=== PATIENT | male | born 1945 | race Caucasian/White ===

== ENCOUNTER 2016-09-17 08:17 | Outpatient (CLI) | payer OTHER ==
[2016-09-17 09:02] LABS: ALBUMIN/GLOBULIN RATIO 1.2 (1.0-2.2); BILIRUBIN,TOTAL 0.8 mg/dL (0.2-1.0); BUN - BLOOD UREA NITROGEN 11 mg/dL (6-20); CALCIUM 9.4 mg/dL (8.5-10.3); CARBON DIOXIDE - CO2 29 mmol/L (21-32); CHLORIDE 98 mmol/L (101-111); CHOL/HDL RATIO 2.1 (<5.0); CHOLESTEROL 132 mg/dL; CREATININE 0.9 mg/dL (0.6-1.2); GFR - MDRD 83 (>89); GLUCOSE 100 mg/dL (70-100); HDL CHOLESTEROL 64 mg/dL; LDL/HDL RATIO 0.9 (<3.6); POTASSIUM 4.1 mmol/L (3.5-5.0); SODIUM 136 mmol/L (135-145); TOTAL PROTEIN 8.2 g/dL (6.7-8.2); TRIGLYCERIDES 56 mg/dL; VLDL CHOLESTEROL 11 mg/dL
[2016-09-17 09:07] LABS: HEMOGLOBIN A1C 0.6 g/dL
== END 2016-09-17 08:18 | disposition home or self-care (01) ==
LOC: LAB 08:17
PROVIDERS: ATTEND Family Medicine
DX: I10 Essential (primary) hypertension (principal)
CPT/HCPCS: 36415; 80053; 80061; 82043; 83036; 84153

== ENCOUNTER 2017-07-05 07:58 | Outpatient (CLI) | payer OTHER ==
[2017-07-05 08:35] LABS: ALBUMIN 4.2 g/dL (3.2-5.5); ALBUMIN/GLOBULIN RATIO 1.2 (1.0-2.2); ALKALINE PHOSPHATASE 64 IU/L (42-121); ALT ALANINE AMINOTRANSFERASE 25 IU/L (10-60); AST ASPARTATE AMINOTRANSFERASE 25 IU/L (10-42); BILIRUBIN,TOTAL 0.6 mg/dL (0.2-1.0); BUN - BLOOD UREA NITROGEN 10 mg/dL (6-20); CALCIUM 9.8 mg/dL (8.5-10.3); CARBON DIOXIDE - CO2 29 mmol/L (21-32); CHLORIDE 97 mmol/L (101-111); CHOL/HDL RATIO 2.4 (<5.0); CHOLESTEROL 134 mg/dL; CREATININE 0.9 mg/dL (0.6-1.2); GFR - MDRD 83 (>89); GLUCOSE 110 mg/dL (70-100); HDL CHOLESTEROL 57 mg/dL; LDL CHOLESTEROL,CALCULATED 62 mg/dL; LDL/HDL RATIO 1.1 (<3.6); SODIUM 134 mmol/L (135-145); TOTAL PROTEIN 7.6 g/dL (6.7-8.2); VLDL CHOLESTEROL 15 mg/dL
== END 2017-07-05 07:59 | disposition home or self-care (01) ==
LOC: LAB 07:58
PROVIDERS: ATTEND Internal Medicine Cardiovascular Disease
DX: E78.5 Hyperlipidemia, unspecified (principal); I10 Essential (primary) hypertension
CPT/HCPCS: 36415; 80053; 80061; 83721

== ENCOUNTER 2018-02-26 10:42 | Outpatient (CLI) | payer OTHER | END 2018-02-26 10:43 | disposition critical access hospital (66) | LOC: EMS 10:42 | PROVIDERS: ATTEND Surgery | DX: M25.551 Pain in right hip (principal); W00.1XXA Fall from stairs and steps due to ice and snow, initial encounter; Y93.01 Activity, walking, marching and hiking; Y92.008 Other place in unspecified non-institutional (private) residence as the place of occurrence of the external cause | CPT/HCPCS: A0425; A0429 ==

== ENCOUNTER 2018-02-26 10:53 | Emergency (ER) | payer OTHER ==
[2018-02-26] MEDS ORDERED: HYDROcod/ACETAM 5/325 MG TABLET PO STA (11:06)
--- NOTE | 2018-02-26 11:09 | ED Physician Documentation ---
PD HPI LOWER EXT INJURY - Stated complaint Stated Complaint: R HIP PX AFTER FALL - Chief complaint Chief Complaint: Ext Problem - History obtained from History obtained from: Patient, Family (), EMS - History of Present Illness PD HPI LOW EXT INJURY LOCATION: Other (72-year-old gentleman with history of left total hip replacement and coronary bypass presents after a fall this morning. He was at home going down the steps outside which were icy and he slipped falling backwards hitting his low back on the right side against the steps. He was ambulatory after the accident but pain gradually increased after that after being sedentary. No other injuries. He is sure he did not hit his head.) Review of Systems Constitutional: denies: Fever, Chills Cardiac: denies: Chest pain / pressure, Palpitations Respiratory: denies: Dyspnea, Cough GI: denies: Abdominal Pain PD PAST MEDICAL HISTORY - Past Medical History Cardiovascular: Arrhythmia Endocrine/Autoimmune: Type 2 diabetes - Past Surgical History Past Surgical History: Yes Ortho: Hip replacement Cardiovascular: Pacemaker - Present Medications Home Medications: Ambulatory Orders Medication Instructions Recorded Confirmed Acetaminophen [Tylenol] 1,000 HS 11/19/12 11/19/12 Amlodipine Besylate 10 mg PO DAILY 11/19/12 11/19/12 Aspirin [Aspir 81] 81 mg PO BID 11/19/12 11/19/12 Atorvastatin Calcium [Lipitor] 40 mg PO HS 11/19/12 11/19/12 Ibuprofen [Advil Migraine] 200 mg PO PRN 11/19/12 11/19/12 Metformin HCl [Glumetza] 1,000 mg PO BID 11/19/12 11/19/12 Multivit-Min/FA/Lycopene/Lut 1 each PO DAILY 11/19/12 11/19/12 [Centrum Silver Tablet] Ibuprofen [Motrin] 600 mg PO Q8HR PRN #30 tab 02/26/13 Metoprolol Succinate [Toprol Xl] 25 mg PO ONCE 02/26/13 02/26/13 Clopidogrel [Plavix] 1 tab PO DAILY 02/26/18 02/26/18 Hydrocodone/Acetaminophen 1 - 2 tab PO Q6H PRN #20 tablet 02/26/18 [Hydrocodone-Acetamin 5-325 mg] Lisinopril 1 tab PO DAILY 02/26/18 02/26/18 - Allergies Allergies/Adverse Reactions: Allergies Allergy/AdvReac Type Severity Reaction Status Date / Time oxycodone HCl * AdvReac Severe psychosis Verified 02/26/18 10:59 [From OxyContin] - Social History Does the pt smoke?: No Smoking Status: Never smoker Does the pt have substance abuse?: No PD ED PE NORMAL - Vitals Vital signs reviewed: Yes - General General: Alert and oriented X 3, No acute distress - HEENT HEENT: PERRL, EOMI - Neck Neck: Supple, no meningeal sign, No bony TTP - Cardiac Cardiac: RRR, No murmur - Respiratory Respiratory: No respiratory distress, Clear bilaterally - Abdomen Abdomen: Soft, Non tender - Back Back: No spinal TTP, Other (There is a large somewhat tender hematoma superior to the right pelvic brim posteriorly. No real corresponding midline tenderness. The pelvic brim itself is mildly tender. The hip on the right is nontender and he has painless range of motion.) - Neuro Neuro: Alert and oriented X 3, Normal speech Results - Vitals Vitals: Vital Signs - 24 hr 02/26/18 02/26/18 10:55 12:09 Temperature 36.5 C Heart Rate 70 70 Respiratory 18 18 Rate Blood Pressure 160/80 H 139/70 H O2 Saturation 98 98 Oxygen O2 Source Room air - Labs Labs: Laboratory Tests 02/26/18 02/26/18 11:15 11:15 WBC 8.5 RBC 3.54 L Hgb 11.9 L Hct 34.6 L MCV 97.7 H MCH 33.5 H MCHC 34.3 RDW 12.8 Plt Count 253 MPV 8.4 Neut # (Auto) 6.5 Lymph # (Auto) 1.1 L [place] # (Auto) 0.5 Eos # (Auto) 0.3 Baso # (Auto) 0.0 Absolute Nucleated RBC 0.00 Nucleated RBC % 0.0 Sodium 133 L Potassium 3.7 Chloride 99 L Carbon Dioxide 29 Anion Gap 5.0 L BUN 11 Creatinine 0.9 Estimated GFR (MDRD) 83 L Glucose 210 H Calcium 8.7 - Rads (name of study) CT A/P Radiology: EMP read contemporaneously (Asymptomatic gallstone, soft tissue hematoma overlying the right iliac bone measuring 11 x 10 x 4 cm) PD MEDICAL DECISION MAKING - ED course ED course: 72-year-old gentleman on Plavix chronic anemia with high MCV presents with fall and large hematoma to the back without extra active extravasation. Stable vital signs. H&H similar to prior. Feeling better after pain medication. Departure - Departure Disposition: 01 Home, Self Care Clinical Impression: Chronic anemia Traumatic hematoma of lower back Qualifiers: Encounter type: initial encounter Qualified Code(s): S30.0XXA - Contusion of lower back and pelvis, initial encounter Gallstone Qualifiers: Cholecystitis presence: without cholecystitis Biliary obstruction: without biliary obstruction Qualified Code(s): K80.20 - Calculus of gallbladder without cholecystitis without obstruction Condition: Good Record reviewed to determine appropriate education?: Yes Instructions: ED Low Back Pain Injury Prescriptions: Hydrocodone/Acetaminophen [Hydrocodone-Acetamin 5-325 mg] 1 - 2 tab PO Q6H PRN #20 tablet PRN Reason: Pain Comments: Talk with Dr. Song about your chronic anemia. Also time to schedule routine colonoscopy. Do not drink or drive while taking narcotic pain medication. Note that many narcotic pain relievers also contain Tylenol/acetaminophen. Please ensure that your total dose of acetaminophen from all sources does not exceed 3 g (3000 mg) per day. You may get constipated while on this medication. Take a stool softener such as Colace twice a day while you are on it. Also add an ubyv-kzk-fomyldy laxative such as senna or MiraLAX on any day that you do not have a bowel movement. If you received a narcotic pain medication or sedative while in the emergency department, do not drive for the next 24 hours.
[2018-02-26 11:22] LABS: BASOPHILS % (AUTO) 0.6 %; EOSINOPHILS # (AUTO) 0.3 10^3/uL (0.0-0.7); EOSINOPHILS % (AUTO) 4.1 %; HGB - HEMOGLOBIN 11.9 g/dL (14.0-18.0); LYMPHOCYTES # (AUTO) 1.1 10^3/uL (1.5-3.5); LYMPHOCYTES % (AUTO) 13.5 %; MEAN CORPUSCULAR HEMOGLOBIN 33.5 pg (27.0-31.0); MEAN CORPUSCULAR HGB CONC 34.3 g/dL (32.0-36.0); MEAN CORPUSCULAR VOLUME 97.7 fL (80.0-94.0); MEAN PLATELET VOLUME 8.4 fL (7.4-11.4); MONOCYTES # (AUTO) 0.5 10^3/uL (0.0-1.0); MONOCYTES % (AUTO) 5.4 %; NEUTROPHILS # (AUTO) 6.5 10^3/uL (1.5-6.6); NEUTROPHILS % (AUTO) 76.4 %; PLT - PLATELET COUNT 253 10^3/uL (130-450); RED BLOOD COUNT 3.54 10^6/uL (4.70-6.10); RED CELL DISTRIBUTION WIDTH 12.8 % (12.0-15.0); WHITE BLOOD COUNT 8.5 x10^3/uL (4.8-10.8)
[2018-02-26] MEDS ORDERED: IOPAMIDOL-300 100 ML VIAL ONE (11:27)
[2018-02-26 11:32] LABS: CALCIUM 8.7 mg/dL (8.5-10.3); CREATININE 0.9 mg/dL (0.6-1.2)
[2018-02-26] MEDS ORDERED: IOPAMIDOL-300 100 ML VIAL IVP ONE (12:05)
[2018-02-26 12:10] VITALS: BP 139/70
--- NOTE | 2018-02-26 12:42 | CT Report ---
Reason: IV only, R back hematoma, eval pelvic bones/Lspine Procedure Date: 02/26/2018 Accession Number: [id number] / [id number] Procedure: CT - Abdomen/Pelvis W/ CPT Code: FULL RESULT: EXAM: CT ABDOMEN AND PELVIS EXAM DATE: 02/26/2018 11:45 AM. CLINICAL HISTORY: IV only, R back hematoma, eval pelvic bones/Lspine. COMPARISONS: None. TECHNIQUE: Routine helical CT imaging was performed through the abdomen and pelvis. IV contrast: ISOVUE 300 100mL. Enteric contrast: No. Reconstructions: Coronal and sagittal. In accordance with CT protocol optimization, one or more of the following dose reduction techniques were utilized for this exam: automated exposure control, adjustment of mA and/or KV based on patient size, or use of iterative reconstructive technique. FINDINGS: Lung Bases: Unremarkable. Liver: Normal. No masses. Gallbladder/Bile Ducts: Stone in the gallbladder. Spleen: Normal. Pancreas: Normal. Adrenal Glands: Normal. Kidneys: Normal. No masses or hydronephrosis. Peritoneal Cavity/Bowel: Normal. No free fluid, free air or adenopathy. No masses or acute inflammatory process. The appendix is well visualized and normal. Pelvic Organs: Normal. The bladder and visualized pelvic organs are within normal limits. Vasculature: Severe atherosclerotic disease with chronic appearing penetrating ulcer along the right lateral aspect of the lower abdominal aorta (series 5, image 21). Bones: No significant abnormality. Other: There is a hematoma in the subcutaneous fat just superficial to the right iliac bone measuring at least 10.6 x 11.3 x 3.4 cm with no evidence of active extravasation. No underlying bony fractures. IMPRESSION: 1. Soft tissue hematoma overlying the right iliac bone measuring approximately 11.3 x 10.6 x 3.4 cm with no underlying bony fractures. No intramuscular hematoma of the underlying paraspinal muscles. 2. No intra-abdominal or pelvic hematoma or free fluid. 3. No bowel obstruction or inflammatory process associated with the bowel. RADIA
== END 2018-02-26 13:13 | disposition home or self-care (01) ==
LOC: EDUNIT# → ED 10:53
DX: S30.0XXA Contusion of lower back and pelvis, initial encounter (principal); W00.0XXA Fall on same level due to ice and snow, initial encounter; D64.9 Anemia, unspecified; K80.20 Calculus of gallbladder without cholecystitis without obstruction; E11.9 Type 2 diabetes mellitus without complications; Z79.84 Long term (current) use of oral hypoglycemic drugs; Z95.0 Presence of cardiac pacemaker; Z96.642 Presence of left artificial hip joint; Z79.01 Long term (current) use of anticoagulants; Z79.82 Long term (current) use of aspirin
CPT/HCPCS: 36415; 74177; 80048; 85025; 99283; A9270; Q9967

== ENCOUNTER 2018-05-12 08:00 | Outpatient (CLI) | payer OTHER ==
[2018-05-12 08:49] LABS: ALBUMIN 4.2 g/dL (3.2-5.5); ALBUMIN/GLOBULIN RATIO 1.3 (1.0-2.2); ALKALINE PHOSPHATASE 64 IU/L (42-121); ALT ALANINE AMINOTRANSFERASE 26 IU/L (10-60); AST ASPARTATE AMINOTRANSFERASE 31 IU/L (10-42); BILIRUBIN,TOTAL 0.6 mg/dL (0.2-1.0); BUN - BLOOD UREA NITROGEN 10 mg/dL (6-20); CALCIUM 9.6 mg/dL (8.5-10.3); CARBON DIOXIDE - CO2 27 mmol/L (21-32); CHLORIDE 96 mmol/L (101-111); CHOL/HDL RATIO 2.1 (<5.0); CHOLESTEROL 121 mg/dL; CREATININE 0.8 mg/dL (0.6-1.2); GFR - MDRD 95 (>89); GLUCOSE 103 mg/dL (70-100); HDL CHOLESTEROL 59 mg/dL; LDL CHOLESTEROL,CALCULATED 51 mg/dL; LDL/HDL RATIO 0.9 (<3.6); SODIUM 132 mmol/L (135-145); TOTAL PROTEIN 7.4 g/dL (6.7-8.2); VLDL CHOLESTEROL 11 mg/dL
== END 2018-05-12 08:01 | disposition home or self-care (01) ==
LOC: LAB 08:00
PROVIDERS: ATTEND Internal Medicine Cardiovascular Disease
DX: E78.5 Hyperlipidemia, unspecified (principal)
CPT/HCPCS: 36415; 80053; 80061; 83721

== ENCOUNTER 2018-05-26 22:16 | Emergency (ER) | payer OTHER ==
[2018-05-27 00:29] LABS: BASOPHILS % (AUTO) 0.3 %; EOSINOPHILS # (AUTO) 0.3 10^3/uL (0.0-0.7); EOSINOPHILS % (AUTO) 2.7 %; LYMPHOCYTES # (AUTO) 1.3 10^3/uL (1.5-3.5); LYMPHOCYTES % (AUTO) 11.4 %; MEAN CORPUSCULAR HEMOGLOBIN 33.4 pg (27.0-31.0); MEAN CORPUSCULAR HGB CONC 33.9 g/dL (32.0-36.0); MEAN CORPUSCULAR VOLUME 98.5 fL (80.0-94.0); MEAN PLATELET VOLUME 9.2 fL (7.4-11.4); MONOCYTES # (AUTO) 0.7 10^3/uL (0.0-1.0); MONOCYTES % (AUTO) 5.9 %; NEUTROPHILS # (AUTO) 9.4 10^3/uL (1.5-6.6); NEUTROPHILS % (AUTO) 79.7 %; PLT - PLATELET COUNT 266 10^3/uL (130-450); RED BLOOD COUNT 4.19 10^6/uL (4.70-6.10); RED CELL DISTRIBUTION WIDTH 12.6 % (12.0-15.0); WHITE BLOOD COUNT 11.8 x10^3/uL (4.8-10.8)
[2018-05-27 00:38] LABS: ALBUMIN 4.7 g/dL (3.2-5.5); BILIRUBIN,TOTAL 0.7 mg/dL (0.2-1.0); CALCIUM 9.7 mg/dL (8.5-10.3); CREATININE 0.8 mg/dL (0.6-1.2); TOTAL PROTEIN 9.2 g/dL (6.7-8.2)
--- NOTE | 2018-05-27 01:07 | ED Physician Documentation ---
PD HPI ABD PAIN - Stated complaint Stated Complaint: ABD PX - Chief complaint Chief Complaint: Abd Pain - History obtained from History obtained from: Patient - History of Present Illness Timing - onset: How many weeks ago (2.5) Timing - details: Gradual onset, Intermittant, Waxing and waning Pain level max: 6 Pain level now: 2 Quality: Cramping, Pain Location: All over / everywhere Radiation: Other (no radiation) Improved by: Other (no ameliorating factors) Worsened by: Other (no exacerbating factors) Associated symptoms: Constipation. No: Fever, Nausea, Vomiting, Diarrhea Similar symptoms before: Has not had sx before - Additional information Additional information: Patient states he has had 2 1/2 weeks of gradually increasing constipation but significantly worse today, particularly related to the cramping discomfort. With the episodes of sensation of urge to defecate that has been inadequately re lieved with small bowel movements, today he developed periumbilical and epigastric pain. last BM was small amount this morning Review of Systems Constitutional: reports: Reviewed and negative Cardiac: reports: Reviewed and negative Respiratory: reports: Reviewed and negative GI: reports: Abdominal Pain, Constipation. denies: Abdominal Swelling, Nausea, Vomiting, Diarrhea : denies: Dysuria, Frequency PD PAST MEDICAL HISTORY - Past Medical History Past Medical History: Yes Cardiovascular: Coronary artery disease, Arrhythmia Endocrine/Autoimmune: Type 2 diabetes - Past Surgical History Past Surgical History: Yes Ortho: Hip replacement Cardiovascular: CABG, Pacemaker - Present Medications Home Medications: Ambulatory Orders Medication Instructions Recorded Confirmed Acetaminophen [Tylenol] 1,000 HS 11/19/12 11/19/12 Amlodipine Besylate 10 mg PO DAILY 11/19/12 11/19/12 Aspirin [Aspir 81] 81 mg PO BID 11/19/12 11/19/12 Atorvastatin Calcium [Lipitor] 40 mg PO HS 11/19/12 11/19/12 Ibuprofen [Advil Migraine] 200 mg PO PRN 11/19/12 11/19/12 Metformin HCl [Glumetza] 1,000 mg PO BID 11/19/12 11/19/12 Multivit-Min/FA/Lycopene/Lut 1 each PO DAILY 11/19/12 11/19/12 [Centrum Silver Tablet] Ibuprofen [Motrin] 600 mg PO Q8HR PRN #30 tab 02/26/13 Metoprolol Succinate [Toprol Xl] 25 mg PO ONCE 02/26/13 02/26/13 Clopidogrel [Plavix] 1 tab PO DAILY 02/26/18 02/26/18 Hydrocodone/Acetaminophen 1 - 2 tab PO Q6H PRN #20 tablet 02/26/18 [Hydrocodone-Acetamin 5-325 mg] Lisinopril 1 tab PO DAILY 02/26/18 02/26/18 - Allergies Allergies/Adverse Reactions: Allergies Allergy/AdvReac Type Severity Reaction Status Date / Time oxycodone HCl * AdvReac Severe psychosis Verified 02/26/18 10:59 [From OxyContin] - Social History Does the pt smoke?: No Smoking Status: Never smoker Does the pt drink ETOH?: Yes Does the pt have substance abuse?: No - Immunizations Immunizations are current?: No Immunizations: TDAP >10years/unknown - POLST Patient has POLST: No PD ED PE NORMAL - Vitals Vital signs reviewed: Yes - General General: Alert and oriented X 3, No acute distress, Well developed/nourished - Cardiac Cardiac: RRR, No murmur - Respiratory Respiratory: No respiratory distress, Clear bilaterally - Abdomen Abdomen: Normal bowel sounds, Soft, Non tender, Non distended - Back Back: No CVA TTP - Derm Derm: No rash Results - Vitals Vitals: Oxygen O2 Source Room air - Labs Labs: Laboratory Tests 05/27/18 05/27/18 05/27/18 00:13 00:13 02:25 WBC 11.8 H RBC 4.19 L Hgb 14.0 Hct 41.3 L MCV 98.5 H MCH 33.4 H MCHC 33.9 RDW 12.6 Plt Count 266 MPV 9.2 Neut # (Auto) 9.4 H Lymph # (Auto) 1.3 L [place] # (Auto) 0.7 Eos # (Auto) 0.3 Baso # (Auto) 0.0 Absolute Nucleated RBC 0.00 Nucleated RBC % 0.0 Sodium 135 Potassium 3.9 Chloride 93 L Carbon Dioxide 25 Anion Gap 17.0 H BUN 15 Creatinine 0.8 Estimated GFR (MDRD) 95 Glucose 166 H Calcium 9.7 Total Bilirubin 0.7 AST 31 ALT 28 Alkaline Phosphatase 81 Total Protein 9.2 H Albumin 4.7 Globulin 4.5 H Albumin/Globulin Ratio 1.0 Lipase 44 Urine Color YELLOW Urine Clarity CLEAR Urine pH 5.5 Ur Specific [place] >=1.030 H Urine Protein 30 H Urine Glucose (UA) 100 H Urine Ketones 15 H Urine Occult Blood NEGATIVE Urine Nitrite NEGATIVE Urine Bilirubin NEGATIVE Urine Urobilinogen 0.2 (NORMAL) Ur Leukocyte Esterase NEGATIVE Urine RBC None Seen Urine WBC 0-3 Ur Squamous Epith Cells NONE SEEN Urine Bacteria None Seen Ur Microscopic Review INDICATED Urine Culture Comments NOT INDICATED - Rads (name of study) CT A/P Radiology: Prelim report reviewed, See rad report PD MEDICAL DECISION MAKING - ED course Complexity details: reviewed results, re-evaluated patient, considered dif ferential, d/w patient, d/w family Departure - Departure Disposition: 01 Home, Self Care Clinical Impression: Gallstone Qualifiers: Cholecystitis presence: without cholecystitis Biliary obstruction: without biliary obstruction Qualified Code(s): K80.20 - Calculus of gallbladder without cholecystitis without obstruction Constipation Qualifiers: Constipation type: unspecified constipation type Qualified Code(s): K59.00 - Constipation, unspecified Condition: Good Instructions: ED Constipation Follow-Up: Fabio Song MD [Primary Care Provider] - Within 1 week () Discharge Date/Time: 05/27/18 03:45
[2018-05-27] MEDS ORDERED: IOVERSOL 320 100 ML VIAL IVP ONE ×2 (01:31→03:15)
[2018-05-27] MEDS ORDERED: IOVERSOL 320 50 ML VIAL ONE (01:31)
[2018-05-27 02:35] LABS: BILIRUBIN,URINE NEGATIVE (NEGATIVE); GLUCOSE, URINE (UA) 100 mg/dL (NEGATIVE); KETONES,URINE (UA) 15 mg/dL (NEGATIVE); LEUKOCYTE ESTERASE, URINE NEGATIVE (NEGATIVE); NITRITE,URINE NEGATIVE (NEGATIVE); OCCULT BLOOD,URINE NEGATIVE (NEGATIVE); PH,URINE 5.5 PH (5.0-7.5); PROTEIN,URINE 30 mg/dL (NEGATIVE); UROBILINOGEN,URINE 0.2 (NORMAL) E.U./dL (NORMAL)
[2018-05-27 02:41] LABS: CLARITY,URINE CLEAR (CLEAR)
[2018-05-27 02:51] LABS: BACTERIA,URINE None Seen /HPF (None Seen); RBC,URINE None Seen /HPF (0-5); SQUAMOUS EPITHELIAL CELL,UR NONE SEEN (<= Few)
[2018-05-27] MEDS ORDERED: KETOROLAC 30 MG/ML VIAL IVP STA (03:09)
[2018-05-27] MEDS ORDERED: IOVERSOL 320 50 ML VIAL PO ONE (03:11)
[2018-05-27 03:17] VITALS: BP 179/93
--- NOTE | 2018-05-27 03:23 | CT Report ---
Reason: abd. pain Procedure Date: 05/27/2018 Accession Number: [id number] / [id number] Procedure: CT - Abdomen/Pelvis W/ CPT Code: FULL RESULT: EXAM: CT ABDOMEN AND PELVIS EXAM DATE: 05/27/2018 02:57 AM. CLINICAL HISTORY: Abd. pain. COMPARISONS: ABDOMEN/PELVIS W/ 02/26/2018 11:45 AM. TECHNIQUE: Routine helical CT imaging was performed through the abdomen and pelvis. IV contrast: OPTIRAY 320 90mL. Enteric contrast: No. Reconstructions: Coronal and sagittal. In accordance with CT protocol optimization, one or more of the following dose reduction techniques were utilized for this exam: automated exposure control, adjustment of mA and/or KV based on patient size, or use of iterative reconstructive technique. FINDINGS: Lung Bases: There are no infiltrates the lung bases. There are extensive atherosclerotic vascular calcifications of the coronary arteries. Liver: Normal. No masses. Gallbladder/Bile Ducts: There is cholelithiasis. There is a large partially laminated gallstone measuring 24 mm in diameter. Spleen: Normal. Pancreas: Normal. Adrenal Glands: Normal. Kidneys: Normal. No masses or hydronephrosis. Peritoneal Cavity/Bowel: Normal. No free fluid, free air or adenopathy. No masses or acute inflammatory process. There are no inflammatory changes of the colon. The appendix is normal. There is a large amount of stool within the colon. There are no discernible obstructing lesions. Few scattered diverticula are noted without evidence for diverticulitis. Pelvic Organs: Normal. The bladder and visualized pelvic organs are within normal limits. Vasculature: No aneurysms or other significant abnormality. Bones: Total left hip replacement. Degenerative changes of the spine. Other: None. IMPRESSION: 1. Cholelithiasis without evidence of cholecystitis. 2. No inflammatory changes of the colon. No bowel obstruction. 3. Advanced atherosclerotic vascular calcifications. RADIA
[2018-05-27] MEDS ORDERED: MAGNESIUM CITRATE 296 ML BOTTLE PO STA (03:38)
== END 2018-05-27 03:45 | disposition home or self-care (01) ==
LOC: ED 22:16
DX: K80.20 Calculus of gallbladder without cholecystitis without obstruction (principal); K59.00 Constipation, unspecified; E11.9 Type 2 diabetes mellitus without complications; Z79.84 Long term (current) use of oral hypoglycemic drugs; Z79.02 Long term (current) use of antithrombotics/antiplatelets; Z79.82 Long term (current) use of aspirin
CPT/HCPCS: 36415; 74177; 80053; 81001; 83690; 85025; 96374; 99283; A9270; Q9967; 81003; 87086

== ENCOUNTER 2018-06-25 02:43 | Emergency (ER) | payer OTHER ==
[2018-06-25 03:09] LABS: BASOPHILS # (AUTO) 0.1 10^3/uL (0.0-0.1); BASOPHILS % (AUTO) 0.6 %; EOSINOPHILS # (AUTO) 0.7 10^3/uL (0.0-0.7); EOSINOPHILS % (AUTO) 7.9 %; HGB - HEMOGLOBIN 12.7 g/dL (14.0-18.0); LYMPHOCYTES # (AUTO) 1.7 10^3/uL (1.5-3.5); LYMPHOCYTES % (AUTO) 19.1 %; MEAN CORPUSCULAR HEMOGLOBIN 32.6 pg (27.0-31.0); MEAN CORPUSCULAR HGB CONC 33.9 g/dL (32.0-36.0); MEAN CORPUSCULAR VOLUME 96.1 fL (80.0-94.0); MEAN PLATELET VOLUME 8.9 fL (7.4-11.4); MONOCYTES # (AUTO) 0.8 10^3/uL (0.0-1.0); NEUTROPHILS # (AUTO) 5.8 10^3/uL (1.5-6.6); NEUTROPHILS % (AUTO) 63.4 %; PLT - PLATELET COUNT 209 10^3/uL (130-450); RED BLOOD COUNT 3.91 10^6/uL (4.70-6.10); RED CELL DISTRIBUTION WIDTH 13.1 % (12.0-15.0); WHITE BLOOD COUNT 9.1 x10^3/uL (4.8-10.8)
[2018-06-25] MEDS ORDERED: KETOROLAC 30 MG/ML VIAL IVP STA (03:21)
--- NOTE | 2018-06-25 03:24 | ED Physician Documentation ---
PD HPI ABD PAIN - Stated complaint Stated Complaint: ABD PX - Chief complaint Chief Complaint: Abd Pain - History obtained from History obtained from: Patient, Family - History of Present Illness Timing - onset: Enter time (2029), Last night Timing - duration: Hours Timing - details: Abrupt onset, Still present Quality: Sharp, Pain Location: RUQ Radiation: Upper back Improved by: BM Worsened by: Eating Associated symptoms: Nausea, Constipation. 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 He indicates that earlier in the day he had a had a burrito with his and approximately half an hour later he began to develop abdominal pain and bloating. That lasted several hours it did resolve only to come back after eating this evening. He was tossing and turning in bed unable to get comfortable and he is come to the emergency department this morning. In triage area he continued to have nausea and abdominal pain really felt quite ill asking the nurse to send him out back behind the shed. Here now in the emergency department his pain is resolving. Review of Systems Constitutional: denies: Fever, Chills, Myalgias Eyes: denies: Decreased vision Ears: denies: Ear pain Nose: denies: Congestion Throat: denies: Sore throat Cardiac: denies: Chest pain / pressure, Palpitations Respiratory: denies: Dyspnea, Cough GI: reports: Abdominal Pain, Nausea, Constipation. denies: Vomiting : denies: Dysuria, Frequency Skin: denies: Rash Musculoskeletal: denies: Neck pain, Back pain, Extremity pain Neurologic: denies: Generalized weakness, Focal weakness, Numbness PD PAST MEDICAL HISTORY - Past Medical History Past Medical History: Yes Cardiovascular: Coronary artery disease, Arrhythmia Endocrine/Autoimmune: Type 2 diabetes - Past Surgical History Past Surgical History: Yes Ortho: Hip replacement Cardiovascular: CABG, Pacemaker - Present Medications Home Medications: Ambulatory Orders Medication Instructions Recorded Confirmed Acetaminophen [Tylenol] 1,000 HS 11/19/12 11/19/12 Aspirin [Aspir 81] 81 mg PO BID 11/19/12 11/19/12 Atorvastatin Calcium [Lipitor] 40 mg PO HS 11/19/12 11/19/12 Ibuprofen [Advil Migraine] 200 mg PO PRN 11/19/12 11/19/12 Metformin HCl [Glumetza] 1,000 mg PO BID 11/19/12 11/19/12 Multivit-Min/FA/Lycopene/Lut 1 each PO DAILY 11/19/12 11/19/12 [Centrum Silver Tablet] RX: Amlodipine Besylate 10 mg PO DAILY 11/19/12 11/19/12 Ibuprofen [Motrin] 600 mg PO Q8HR PRN #30 tab 02/26/13 Metoprolol Succinate [Toprol Xl] 25 mg PO ONCE 02/26/13 02/26/13 Hydrocodone/Acetaminophen 1 - 2 tab PO Q6H PRN #20 tablet 02/26/18 [Hydrocodone-Acetamin 5-325 mg] RX: Clopidogrel [Plavix] 1 tab PO DAILY 02/26/18 02/26/18 RX: Lisinopril 1 tab PO DAILY 02/26/18 02/26/18 - Allergies Allergies/Adverse Reactions: Allergies Allergy/AdvReac Type Severity Reaction Status Date / Time oxycodone HCl * AdvReac Severe psychosis Verified 02/26/18 10:59 [From OxyContin] - Social History Does the pt smoke?: No Smoking Status: Never smoker Does the pt drink ETOH?: Yes Does the pt have substance abuse?: No - Immunizations Immunizations are current?: No Immunizations: TDAP >10years/unknown - POLST Patient has POLST: No PD ED PE NORMAL - Vitals Vital signs reviewed: Yes (hypertensive ) - General General: Alert and oriented X 3, No acute distress, Well developed/nourished - HEENT HEENT: Atraumatic, PERRL, EOMI - Neck Neck: Supple, no meningeal sign - Cardiac Cardiac: RRR, No murmur - Respiratory Respiratory: No respiratory distress, Clear bilaterally - Abdomen Abdomen: Soft, Other (RUQ tenderness is mild without guarding. The bowel tones are hyperactive and there is epigastric tenderness as well. ) - Back Back: No CVA TTP, No spinal TTP - Derm Derm: Normal color, Warm and dry, No rash - Extremities Extremities: No deformity, No edema - Neuro Neuro: Alert and oriented X 3, senior graphic designer 2-12 intact, No motor deficit, No sensory deficit, Normal speech Eye Opening: Spontaneous Motor: Obeys Commands Verbal: Oriented GCS Score: 15 - Psych Psych: Normal mood, Normal affect Results - Vitals Vitals: Vital Signs - 24 hr 06/25/18 06/25/18 06/25/18 02:45 03:06 03:55 Temperature 36.3 C L Heart Rate 80 70 70 Respiratory 16 18 14 Rate Blood Pressure 173/95 H 162/87 H 164/74 H O2 Saturation 99 100 97 Oxygen O2 Source Room air - EKG (time done) 0253 Rate: Rate (enter#) (70) Rhythm: Paced QRS: LVH Compare to prior EKG: Changed from prior EKG (SPT 11-19-12 rhythm is now paced. Bigeminy is no longer present. ) Computer interpretation: Agree with computer - Labs Labs: Laboratory Tests 06/25/18 06/25/18 06/25/18 03:00 03:00 03:00 WBC 9.1 RBC 3.91 L Hgb 12.7 L Hct 37.5 L MCV 96.1 H MCH 32.6 H MCHC 33.9 RDW 13.1 Plt Count 209 MPV 8.9 Neut # (Auto) 5.8 Lymph # (Auto) 1.7 [place] # (Auto) 0.8 Eos # (Auto) 0.7 Baso # (Auto) 0.1 Absolute Nucleated RBC 0.00 Nucleated RBC % 0.0 Sodium 133 L Potassium 4.0 Chloride 96 L Carbon Dioxide 28 Anion Gap 9.0 BUN 10 Creatinine 0.7 Estimated GFR (MDRD) 111 Glucose 145 H Calcium 9.4 Total Bilirubin 0.6 AST 30 ALT 26 Alkaline Phosphatase 83 Troponin I < 0.04 Total Protein 7.7 Albumin 4.2 Globulin 3.5 Albumin/Globulin Ratio 1.2 Lipase 41 Procedures - Bedside sono Bedside sono by EMP: With use of bedside ultrasound the right upper quadrant is imaged. There is tenderness to a contracted gallbladder with a solitary large stone. There does not appear to be evidence of intrahepatic biliary duct dilation. PD MEDICAL DECISION MAKING - ED course Complexity details: reviewed old records, reviewed results, re-evaluated patient, considered differential, d/w patient, d/w family ED course: 73-year-old male with symptomatic gallstone has improvement in his pain in the emergency department spontaneously and has further improvement with the use of intravenous Toradol. Today his gallbladder is contracted around the stone and in review of his prior film from a CT scan done on 05/27/2018 the gallbladder was markedly distended with a stone lodged in the neck. Of note on that CT scan there is a significant amount of right sided constipation distending the colon to about 7 cm. This area of colonic distention is just below the distended gallbladder. I suspect this patient has primarily gallbladder disease and he does not have cholecystitis today. I suspect that his constipation is somehow related to his gallbladder. I have asked the patient to follow-up with surgery this week. Departure - Departure Disposition: 01 Home, Self Care Clinical Impression: Cholelithiasis Qualifiers: Cholelithiasis location: gallbladder Cholecystitis presence: without cholecy stitis Biliary obstruction: without biliary obstruction Qualified Code(s): K80.20 - Calculus of gallbladder without cholecystitis without obstruction Condition: Stable Instructions: ED Gallstone W Biliary Colic Follow-Up: Fabio Song MD [Primary Care Provider] - Joseph Bacon MD [Provider Admit Priv/Credential] - Comments: This morning it appears that your pain is related to your gallbladder and a large gallstone. The recommendation is to eat a low-fat diet and to follow-up with the surgeon this week. Pain that persist beyond 4-5 hours indicates potential Choleycystitis and a reason to return to the hospital. Discharge Date/Time: 06/25/18 04:03
[2018-06-25 03:25] LABS: ALBUMIN 4.2 g/dL (3.2-5.5); ALBUMIN/GLOBULIN RATIO 1.2 (1.0-2.2); BILIRUBIN,TOTAL 0.6 mg/dL (0.2-1.0); CALCIUM 9.4 mg/dL (8.5-10.3); CREATININE 0.7 mg/dL (0.6-1.2); TOTAL PROTEIN 7.7 g/dL (6.7-8.2)
[2018-06-25] MEDS ORDERED: ONDANSETRON 4 MG/2 ML VIAL IVP STA (03:28)
[2018-06-25 03:56] VITALS: BP 164/74
== END 2018-06-25 04:03 | disposition home or self-care (01) ==
LOC: ED 02:43
DX: K80.20 Calculus of gallbladder without cholecystitis without obstruction (principal); K59.00 Constipation, unspecified; E11.9 Type 2 diabetes mellitus without complications; Z79.84 Long term (current) use of oral hypoglycemic drugs; Z95.0 Presence of cardiac pacemaker; Z79.02 Long term (current) use of antithrombotics/antiplatelets; Z79.82 Long term (current) use of aspirin
CPT/HCPCS: 36415; 80053; 83690; 84484; 85025; 93005; 96374; 96375; 99284

== ENCOUNTER 2018-06-26 09:10 | Day surgery (SDC) | payer OTHER ==
--- NOTE | 2018-06-26 09:46 | ED Physician Documentation ---
History of Present Illness - Stated complaint Stated Complaint: R SIDE PX - Chief complaint Chief Complaint: Abd Pain - History obtained from History obtained from: Patient - Additonal information Additional information: Patient is a 73-year-old male with cardiac history, diabetic history, and recurrent gallbladder issues presenting with persistent abdominal pain over the past several days but is a coming by nausea without vomiting, decreased bowel movements, but no urinary changes. Patient also denies fever, respiratory complaints, chest complaints, or rash. Patient was seen several days ago and bedside ultrasound performed by emergency physician indicated likely gallstone. Patient has not been on any medication since that time. No particular improving or worsening factors noted to his symptoms. Review of Systems Constitutional: denies: Fever GI: reports: Abdominal Pain, Nausea, Constipation. denies: Vomiting : denies: Dysuria PD PAST MEDICAL HISTORY - Past Medical History Cardiovascular: Coronary artery disease, Arrhythmia Endocrine/Autoimmune: Type 2 diabetes - Past Surgical History Past Surgical History: Yes Ortho: Hip replacement Cardiovascular: CABG, Pacemaker - Present Medications Home Medications: Ambulatory Orders Medication Instructions Recorded Confirmed Aspirin [Aspir 81] 81 mg PO BID 11/19/12 06/26/18 Atorvastatin Calcium [Lipitor] 40 mg PO QPM 11/19/12 06/26/18 Metformin HCl [Glumetza] 1,000 mg PO BID 11/19/12 06/26/18 RX: Amlodipine Besylate 10 mg PO DAILY 11/19/12 06/26/18 Metoprolol Succinate [Toprol Xl] 37.5 mg PO BID 02/26/13 06/26/18 RX: Clopidogrel [Plavix] 75 mg PO DAILY 02/26/18 06/26/18 Acetaminophen/Diphenhydramine 1 tab PO QPM PRN 06/26/18 06/26/18 [Tylenol Pm Ex-Strength Caplet] Cholecalciferol (Vitamin D3) 1,000 unit PO DAILY 06/26/18 06/26/18 [Vitamin D3] Magnesium Oxide [Magnesium] 400 mg PO DAILY 06/26/18 06/26/18 - Allergies Allergies/Adverse Reactions: Allergies Allergy/AdvReac Type Severity Reaction Status Date / Time lisinopril Allergy Severe ANGIOEDEMA Verified 06/26/18 14:56 oxycodone HCl * AdvReac Severe psychosis Verified 06/26/18 09:34 [From OxyContin] - Social History Does the pt smoke?: No Smoking Status: Never smoker Does the pt drink ETOH?: Yes Does the pt have substance abuse?: No - Immunizations Immunizations are current?: No Immunizations: TDAP >10years/unknown - POLST Patient has POLST: No PD ED PE NORMAL - General General: Alert and oriented X 3, No acute distress, Well developed/nourished - HEENT HEENT: Atraumatic, Moist mucous membranes - Cardiac Cardiac: RRR, No murmur - Respiratory Respiratory: No respiratory distress, Clear bilaterally - Abdomen Abdomen: Normal bowel sounds, Soft, Other (Moderately distended and diffusely tender, worse and right upper quadrant with positive Martinez sign. No rebound or signs peritonitis present.) - Derm Derm: Normal color, Warm and dry, No rash - Extremities Extremities: No deformity, No tenderness to palpate - Neuro Neuro: Alert and oriented X 3, No motor deficit, No sensory deficit - Psych Psych: Normal mood, Normal affect Results - Vitals Vitals: Vital Signs - 24 hr 06/26/18 06/26/18 06/26/18 09:31 12:34 12:47 Temperature 36.4 C L Heart Rate 76 71 Respiratory 18 18 Rate Blood Pressure 151/80 H 144/69 H 95/79 O2 Saturation 99 97 06/26/18 06/26/18 06/26/18 14:20 17:14 17:21 Temperature 37.6 C H Heart Rate 70 69 70 Respiratory 18 23 12 Rate Blood Pressure 137/65 H 129/94 H 125/59 L O2 Saturation 95 99 95 06/26/18 06/26/18 06/26/18 17:25 17:30 17:45 Temperature 37.5 C 37.4 C 37.1 C Heart Rate 70 70 72 Respiratory 22 15 Rate Blood Pressure 121/73 113/66 127/63 O2 Saturation 94 95 93 06/26/18 06/26/18 06/26/18 18:07 18:17 18:32 Temperature 36.9 C Heart Rate 69 70 70 Respiratory 18 18 18 Rate Blood Pressure 141/83 H 140/64 H 137/70 H O2 Saturation 91 L 92 93 06/26/18 06/26/18 18:47 19:09 Temperature Heart Rate 69 70 Respiratory 18 18 Rate Blood Pressure 148/83 H 163/74 H O2 Saturation 94 98 Oxygen O2 Source Room air - Labs Labs: Laboratory Tests 06/26/18 06/26/18 06/26/18 10:09 10:09 13:30 WBC 16.0 H RBC 3.83 L Hgb 12.4 L Hct 36.8 L MCV 96.0 H MCH 32.5 H MCHC 33.8 RDW 12.9 Plt Count 198 MPV 8.9 Neut # (Auto) 13.7 H Lymph # (Auto) 0.8 L [place] # (Auto) 1.5 H Eos # (Auto) 0.0 Baso # (Auto) 0.0 Absolute Nucleated RBC 0.00 Nucleated RBC % 0.0 Sodium 131 L Potassium 3.9 Chloride 93 L Carbon Dioxide 27 Anion Gap 11.0 BUN 9 Creatinine 0.9 Estimated GFR (MDRD) 83 L Glucose 253 H POC Whole Bld Glucose Calcium 9.0 Total Bilirubin 1.0 AST 29 ALT 26 Alkaline Phosphatase 70 Total Protein 7.9 Albumin 4.1 Globulin 3.8 Albumin/Globulin Ratio 1.1 Lipase 23 Urine Color YELLOW Urine Clarity CLEAR Urine pH 6.5 Ur Specific [place] 1.025 Urine Protein TRACE Urine Glucose (UA) >=1000 H Urine Ketones TRACE Urine Occult Blood NEGATIVE Urine Nitrite NEGATIVE Urine Bilirubin NEGATIVE Urine Urobilinogen 0.2 (NORMAL) Ur Leukocyte Esterase NEGATIVE Ur Microscopic Review NOT INDICATED Urine Culture Comments NOT INDICATED 06/26/18 06/26/18 16:57 17:34 WBC RBC Hgb Hct MCV MCH MCHC RDW Plt Count MPV Neut # (Auto) Lymph # (Auto) [place] # (Auto) Eos # (Auto) Baso # (Auto) Absolute Nucleated RBC Nucleated RBC % Sodium Potassium Chloride Carbon Dioxide Anion Gap BUN Creatinine Estimated GFR (MDRD) Glucose POC Whole Bld Glucose 155 H 145 H Calcium Total Bilirubin AST ALT Alkaline Phosphatase Total Protein Albumin Globulin Albumin/Globulin Ratio Lipase Urine Color Urine Clarity Urine pH Ur Specific [place] Urine Protein Urine Glucose (UA) Urine Ketones Urine Occult Blood Urine Nitrite Urine Bilirubin Urine Urobilinogen Ur Leukocyte Esterase Ur Microscopic Review Urine Culture Comments PD MEDICAL DECISION MAKING - ED course Complexity details: re-evaluated patient, considered differential, d/w patient, d/w family, d/w healthcare risk control consultant ED course: Most concerning for gallbladder disease including masses, cholecystitis, other biliary disease, as well as other intra-abdominal pathology including but not limited to AAA, small bowel obstruction, diverticulitis, particularly given patient's history and complaints, as well as physical exam findings. Patient started on IV fluid, as well as nausea and pain medication, which required repeat. Screening lab work and urinalysis obtained. Abdominal x-ray did not reveal evidence of obstruction, but large stool burden. Abdominal ultrasound however revealed evidence of 2 cm stone at gallbladder neck. Patient had positive Martinez sign still present. Screening lab work also indicated significant leukocytosis and felt that acute cholecystitis was likely. Spoke with surgery, who agreed to follow and admitted patient to hospice. Advised patient and family of results and recommendations. They are comfortable with this plan. Departure - Departure Disposition: ED Transfer to [facility] Clinical Impression: Cholecystitis Condition: Good Discharge Date/Time: 06/26/18 16:15
[2018-06-26] MEDS ORDERED: ONDANSETRON 4 MG/2 ML VIAL IVP STA ×2 (09:53→13:55)
[2018-06-26] MEDS ORDERED: fentaNYL 100 MCG/2 ML VIAL IVP STA (09:53)
[2018-06-26] MEDS ORDERED: SODIUM CHLORIDE 0.9% 1,000 ML IV ONE (09:53)
[2018-06-26 10:18] LABS: BASOPHILS % (AUTO) 0.1 %; HGB - HEMOGLOBIN 12.4 g/dL (14.0-18.0); LYMPHOCYTES # (AUTO) 0.8 10^3/uL (1.5-3.5); LYMPHOCYTES % (AUTO) 4.9 %; MEAN CORPUSCULAR HEMOGLOBIN 32.5 pg (27.0-31.0); MEAN CORPUSCULAR HGB CONC 33.8 g/dL (32.0-36.0); MEAN PLATELET VOLUME 8.9 fL (7.4-11.4); MONOCYTES # (AUTO) 1.5 10^3/uL (0.0-1.0); MONOCYTES % (AUTO) 9.6 %; NEUTROPHILS # (AUTO) 13.7 10^3/uL (1.5-6.6); NEUTROPHILS % (AUTO) 85.4 %; PLT - PLATELET COUNT 198 10^3/uL (130-450); RED BLOOD COUNT 3.83 10^6/uL (4.70-6.10); RED CELL DISTRIBUTION WIDTH 12.9 % (12.0-15.0)
[2018-06-26 10:37] LABS: ALBUMIN 4.1 g/dL (3.2-5.5); ALBUMIN/GLOBULIN RATIO 1.1 (1.0-2.2); CREATININE 0.9 mg/dL (0.6-1.2); TOTAL PROTEIN 7.9 g/dL (6.7-8.2)
--- NOTE | 2018-06-26 12:36 | Ultrasound Report ---
Reason: concern for gallbladder disease, stone Procedure Date: 06/26/2018 Accession Number: [id number] / [id number] Procedure: US - Abdomen Limited CPT Code: FULL RESULT: EXAM: ABDOMEN ULTRASOUND LIMITED, RUQ EXAM DATE: 06/26/2018 11:39 AM. CLINICAL HISTORY: Concern for gallbladder disease, stone. COMPARISON: ABDOMEN/PELVIS W/ 05/27/2018 2:57 AM. TECHNIQUE: Real-time scanning was performed with static images obtained. FINDINGS: Liver: Normal in size and echotexture. 14.5 cm. Main portal vein flow: Hepatopetal. Gallbladder: There is a 2 cm stone lodged in the neck of the gallbladder. There was tenderness to imaging directly over the gallbladder consistent with sonographic Martinez's sign. Wall thickness was equivocal between 3 and 4 mm. Tiny slip of echo free fluid was noted adjacent to the gallbladder not previously seen on CT. Gallbladder is enlarged similar to the prior CT measuring 10 cm in length by 4.5 cm in transverse dimension. Biliary System: CBD measures 7.1 mm. No intrahepatic or extrahepatic ductal dilatation. Other: None. IMPRESSION: 1. 2 cm gallstone lodged in the gallbladder neck. 2. Tenderness to imaging, increase in gallbladder size and minimal pericholecystic fluid may represent acute on chronic cholecystitis. RADIA
--- NOTE | 2018-06-26 12:39 | XRAY Report ---
Reason: concern for sbo Procedure Date: 06/26/2018 Accession Number: [id number] / [id number] Procedure: XR - Abdomen 2 View X-Ray CPT Code: 86499 FULL RESULT: EXAM: ABDOMEN RADIOGRAPHY EXAM DATE: 06/26/2018 11:56 AM. CLINICAL HISTORY: Concern for small bowel obstruction. COMPARISON: ABDOMEN/PELVIS W/ 05/27/2018 2:57 AM. TECHNIQUE: 2 views. FINDINGS: Lung Bases: Unremarkable. Bowel Gas Pattern: Nonobstructive bowel gas pattern. Moderate to large stool burden noted within the colon similar to prior CT. Free Air: None. Other: Stable appearance of left total hip arthroplasty, components incompletely included. IMPRESSION: Moderate to large stool burden. Nonobstructive bowel gas pattern. RADIA
[2018-06-26] MEDS ORDERED: cefOXitin 2 GM in SODIUM CHLORIDE 0.9% MINIBAG 100 ML IV STA (13:46)
[2018-06-26 13:48] LABS: BILIRUBIN,URINE NEGATIVE (NEGATIVE); GLUCOSE, URINE (UA) >=1000 mg/dL (NEGATIVE); KETONES,URINE (UA) TRACE mg/dL (NEGATIVE); LEUKOCYTE ESTERASE, URINE NEGATIVE (NEGATIVE); NITRITE,URINE NEGATIVE (NEGATIVE); OCCULT BLOOD,URINE NEGATIVE (NEGATIVE); PH,URINE 6.5 PH (5.0-7.5); PROTEIN,URINE TRACE mg/dL (NEGATIVE); UROBILINOGEN,URINE 0.2 (NORMAL) E.U./dL (NORMAL)
[2018-06-26 13:51] LABS: CLARITY,URINE CLEAR (CLEAR)
[2018-06-26] MEDS ORDERED: HYDROmorphone 1 MG/ML CARPUJECT IVP STA (13:55)
[2018-06-26] MEDS ORDERED: HYDROmorphone 0.5 MG/0.5 ML SYRINGE IVP PRN (14:07)
[2018-06-26] MEDS ORDERED: ONDANSETRON 4 MG/2 ML VIAL IVP PRN (14:07)
[2018-06-26] MEDS ORDERED: SODIUM CHLORIDE FLUSH 0.9% 10 ML SYRINGE IVP PRN (14:07)
[2018-06-26] MEDS ORDERED: SODIUM CHLORIDE 0.9% 1,000 ML IV SCH (15:00)
--- NOTE | 2018-06-26 15:26 | ANESTHESIA ---
Pre-Anesthesia VS, & Labs - Diagnosis Cholecystitis - Procedure Laparoscopic cholecystectomy Vital Signs: Temp Pulse Resp BP Pulse Ox 36.4 C L 70 18 137/65 H 95 06/26/18 09:31 06/26/18 14:20 06/26/18 14:20 06/26/18 14:20 06/26/18 14:20 Height 5 ft 11 in Weight (kg) 80.739 kg Body Mass Index 24.8 - NPO >8 hours - Lab Results Current Lab Results: Laboratory Tests 06/26/18 10:09: Sodium 131 L, Potassium 3.9, Chloride 93 L, Carbon Dioxide 27, Anion Gap 11.0, BUN 9, Creatinine 0.9, Estimated GFR (MDRD) 83 L, Glucose 253 H, Calcium 9.0, Total Bilirubin 1.0, AST 29, ALT 26, Alkaline Phosphatase 70, Total Protein 7.9, Albumin 4.1, Globulin 3.8, Albumin/Globulin Ratio 1.1, Lipase 23 06/26/18 10:09: WBC 16.0 H, RBC 3.83 L, Hgb 12.4 L, Hct 36.8 L, MCV 96.0 H, MCH 32.5 H, MCHC 33.8, RDW 12.9, Plt Count 198, MPV 8.9, Neut # (Auto) 13.7 H, Lymph # (Auto) 0.8 L, [place] # (Auto) 1.5 H, Eos # (Auto) 0.0, Baso # (Auto) 0.0, Absolute Nucleated RBC 0.00, Nucleated RBC % 0.0 Fish Bones: 06/26/18 10:09 06/26/18 10:09 Home Medications and Allergies Home Medications: Ambulatory Orders Acetaminophen/Diphenhydramine [Tylenol Pm Ex-Strength Caplet] 1 tab PO QPM PRN 06/26/18 Cholecalciferol (Vitamin D3) [Vitamin D3] 1,000 unit PO DAILY 06/26/18 Magnesium Oxide [Magnesium] 400 mg PO DAILY 06/26/18 Amlodipine Besylate 10 mg PO DAILY 11/19/12 Aspirin [Aspir 81] 81 mg PO BID 11/19/12 Atorvastatin Calcium [Lipitor] 40 mg PO QPM 11/19/12 Metformin HCl [Glumetza] 1,000 mg PO BID 11/19/12 Metoprolol Succinate [Toprol Xl] 37.5 mg PO BID 02/26/13 Clopidogrel [Plavix] 75 mg PO DAILY 02/26/18 Acetaminophen/Diphenhydramine [Tylenol Pm Ex-Strength Caplet] 1 tab PO QPM PRN 06/26/18 Cholecalciferol (Vitamin D3) [Vitamin D3] 1,000 unit PO DAILY 06/26/18 Magnesium Oxide [Magnesium] 400 mg PO DAILY 06/26/18 Allergies/Adverse Reactions: Allergies Allergy/AdvReac Type Severity Reaction Status Date / Time lisinopril Allergy Severe ANGIOEDEMA Verified 06/26/18 14:56 oxycodone HCl * AdvReac Severe psychosis Verified 06/26/18 09:34 [From OxyContin] Anes History & Medical History - Anesthetic History Anesthesia Complications: reports: No previous complications - Medical History Cardiovascular: reports: Coronary artery disease, Arrhythmia Pulmonary: reports: None Gastrointestinal: reports: None Urinary: reports: None Neuro: reports: None Musculoskeletal: reports: None Endocrine/Autoimmune: reports: Type 2 diabetes Blood Disorders: reports: None Smoking Status: Never smoker Psychosocial: reports: Alcohol (2-3 glasses of wine per night) Other Past Medical History: gall stones - Surgical History Cardiothoracic: CABG, Pacemaker, Other (CEA) Orthopedic: Hip replacement Exam General: Alert, Oriented x3, Cooperative, No acute distress Dental: WNL Mouth Openin Fingerbreadth Neck Mobility: Normal Mallampati classification: II Thyromental Distance: 4-6 cm Respiratory: Lungs clear, Normal breath sounds, No respiratory distress, No accessory muscle use Cardiovascular: Regular rate, Normal S1, Normal S2, No murmurs Mental/Cognitive Status: Alert/Oriented X3, Normal for patient Plan Anesthesia Type: General Consent for Procedure(s) Verified and Reviewed: Yes Code Status: Attempt Resuscitation ASA classification: 3-Severe systemic disease Is this case an emergency?: Yes
[2018-06-26] MEDS ORDERED: BUPIVACAINE 0.5%-EPI 1:200000 PF 30 ML VIAL ONE (15:33)
[2018-06-26] MEDS ORDERED: INSULIN REGULAR HUMAN 100 UNIT/1 ML 10 ML MDV ONE ×2 (15:51→15:53)
[2018-06-26] MEDS ORDERED: LACTATED RINGERS 1,000 ML IV ONE ×2 (16:21→17:00)
[2018-06-26] MEDS ORDERED: SUGAMMADEX 200 MG/2 ML VIAL IVP ONE (16:56)
[2018-06-26] MEDS ORDERED: BUPIVACAINE 0.25%-EPI 1:200000 PF 30 ML VIAL SUBQ ONE (16:57)
[2018-06-26] MEDS ORDERED: PROPOFOL 200 MG/20 ML VIAL IVP ONE (17:00)
[2018-06-26] MEDS ORDERED: PHENYLEPHRINE 50 MG/5 ML VIAL IV ONE (17:00)
[2018-06-26] MEDS ORDERED: ONDANSETRON 4 MG/2 ML VIAL IVP ONE (17:00)
[2018-06-26] MEDS ORDERED: fentaNYL 250 MCG/5 ML VIAL IVP ONE (17:00)
[2018-06-26] MEDS ORDERED: SODIUM CHLORIDE FLUSH 0.9% 10 ML SYRINGE IVP SCH (17:00)
[2018-06-26] MEDS ORDERED: ROCURONIUM 50 MG/5 ML VIAL IVP ONE (17:00)
--- NOTE | 2018-06-26 17:12 | IMMEDIATE POSTOPERATIVE NOTE ---
Immediate Postoperative Note - Procedure Note Procedure Date: 06/26/18 Pre-Op Diagnosis: cholecystitis Procedure: lap stacey Post-Op Diagnosis: same Primary Surgeon: jayden Anesthesia Type: General ET tube Complications: No complications Estimated Blood Loss (in cc): 50 Specimens and Cultures: gallbladder Plan of Care: d/c
[2018-06-26] MEDS ORDERED: HYDROcod/ACETAM 5/325 MG TABLET PO PRN (17:24)
[2018-06-26 19:12] VITALS: BP 163/74
--- NOTE | 2018-06-26 23:51 | OPERATIVE REPORT ---
DATE OF SERVICE: 06/26/2018 Physician: Deven Worrell MD PREOPERATIVE DIAGNOSIS: Cholecystitis. POSTOPERATIVE DIAGNOSIS: Cholecystitis. PROCEDURE: Laparoscopic cholecystectomy. INDICATIONS FOR PROCEDURE: The patient is a 73-year-old man who presented to the ER with a month of recurrent right upper quadrant pain. However, this episode was more severe than prior. On workup, he was found to have acute cholecystitis. He has had two CABGs in the past although his functional status is good and he follows up with his continuum of care manager regularly. He is also on aspirin and plavix, last taken three days ago. He understands he has an increased risk of bleeding and cardiac events from surgery. PROCEDURE IN DETAIL: The risks and benefits of the procedure were explained to the patient, and he agreed to the procedure. He was taken to the operating room and given general anesthesia and intubated. The abdomen was prepped and draped. A timeout was performed. Everyone in the room agreed to the procedure. We began by making a 2 cm supraumbilical incision. We carried this down inside the peritoneal cavity, inserted a Amairani trocar, and secured it in place. We insufflated the abdomen to 15 mmHg and made a general inspection. The gallbladder was found to be severely inflamed with adherent omentum. We inserted three more 5 mm trocars under vision of the camera, one below the xiphoid process and two below the right costal margin. We then peeled the omentum off the gallbladder and used a drainage needle to drain the very tense gallbladder. No sign of gangrene or necrosis. We then dissected out the fundus of the gallbladder, achieving a critical view. We then double clipped and ligated the cystic duct and artery and removed the gallbladder off the liver bed using monopolar electricity. The gallbladder was placed in an EndoCatch bag. There was a fair amount of oozing from the liver bed consistent with the history of plavix. This was controlled with cautery and Surgiflo. Once that was done, there was no further bleeding. The right upper quadrant was then lavaged dry and clean. The gallbladder, which had not been perforated during removal, was very large and contained a large stone, and our incision had to be enlarged to accommodate it. We were finally, however, able to extract it and send it to pathology. All 4 trocars were removed under vision of the camera. The umbilical port site was closed using 0 Vicryl stitch, and the skin for all 4 incisions was closed using 4-0 Monocryl and Dermabond. This terminated the procedure. The patient tolerated it well. He was extubated in the operating room and taken to the recovery room in stable condition. COUNTS: Instrument and lap counts were correct. ESTIMATED BLOOD LOSS: 50 mL SPECIMEN: Gallbladder. COMPLICATIONS: None. PLAN: The plan for this patient is to go home later today. TD: 06/26/2018 17:22 [email or web address]
[2018-06-27] MEDS ORDERED: POLYETHYLENE GLYCOL 3350 17 GM PACKET PO SCH (09:00)
== END 2018-06-26 19:47 | disposition home or self-care (01) ==
LOC: ED 09:10 → SDS 15:00 → OBS 18:02 → SDS 19:47
PROVIDERS: ATTEND Surgery
PROC: 0FT44ZZ Resection of Gallbladder, Percutaneous Endoscopic Approach (ICD-10-PCS; principal; 2018-06-26 15:30)
DX: K80.10 Calculus of gallbladder with chronic cholecystitis without obstruction (principal); E11.9 Type 2 diabetes mellitus without complications; I25.10 Atherosclerotic heart disease of native coronary artery without angina pectoris; Z95.0 Presence of cardiac pacemaker; Z95.1 Presence of aortocoronary bypass graft
CPT/HCPCS: 36415; 47562; 74019; 76705; 80053; 81003; 83690; 85025; 99284; A9270; J1170; J1815; J3010; J7120; 81001; 87086

== ENCOUNTER 2018-07-21 09:42 | Outpatient (CLI) | payer OTHER ==
--- NOTE | 2018-07-21 11:02 | XRAY Report ---
Reason: CAD,AODM Procedure Date: 07/21/2018 Accession Number: [id number] / [id number] Procedure: WCP - Chest 2 View X-Ray CPT Code: 33344 FULL RESULT: EXAM: CHEST RADIOGRAPHY EXAM DATE: 07/21/2018 09:53 AM. CLINICAL HISTORY: Coronary artery disease, AODM, chronic cough. COMPARISON: None. TECHNIQUE: 2 views. FINDINGS: Lungs/Pleura: No focal opacities evident. No pleural effusion. No pneumothorax. Normal volumes. Mediastinum: The cardiomediastinal silhouette is borderline enlarged and demonstrates calcifications of the aortic arch. Other: Pacemaker with leads in expected position. Median sternotomy and CABG changes. IMPRESSION: Status post CABG with no evidence of acute airspace disease or overt pulmonary edema. RADIA
== END 2018-07-21 09:43 | disposition home or self-care (01) ==
LOC: DI.WCP 09:42
PROVIDERS: ATTEND Family Medicine
DX: I25.10 Atherosclerotic heart disease of native coronary artery without angina pectoris (principal); E11.9 Type 2 diabetes mellitus without complications; Z95.1 Presence of aortocoronary bypass graft
CPT/HCPCS: 71046

== ENCOUNTER 2018-07-22 08:28 | Outpatient (CLI) | payer OTHER ==
[~2018-07-22 08:28] MED LIST: IOVERSOL 320 100 ML VIAL IVP ONE
[2018-07-22] MEDS ORDERED: IOVERSOL 320 100 ML VIAL IVP ONE (09:13)
[2018-07-22 09:18] LABS: BASOPHILS % (AUTO) 0.4 %; EOSINOPHILS # (AUTO) 0.2 10^3/uL (0.0-0.7); EOSINOPHILS % (AUTO) 2.3 %; HGB - HEMOGLOBIN 9.2 g/dL (14.0-18.0); LYMPHOCYTES # (AUTO) 1.3 10^3/uL (1.5-3.5); LYMPHOCYTES % (AUTO) 13.4 %; MEAN CORPUSCULAR HEMOGLOBIN 30.7 pg (27.0-31.0); MEAN CORPUSCULAR HGB CONC 33.6 g/dL (32.0-36.0); MEAN CORPUSCULAR VOLUME 91.4 fL (80.0-94.0); MEAN PLATELET VOLUME 7.2 fL (7.4-11.4); MONOCYTES # (AUTO) 0.9 10^3/uL (0.0-1.0); MONOCYTES % (AUTO) 8.9 %; NEUTROPHILS # (AUTO) 7.2 10^3/uL (1.5-6.6); PLT - PLATELET COUNT 483 10^3/uL (130-450); RED BLOOD COUNT 2.99 10^6/uL (4.70-6.10); RED CELL DISTRIBUTION WIDTH 14.3 % (12.0-15.0); WHITE BLOOD COUNT 9.6 x10^3/uL (4.8-10.8)
[2018-07-22 09:41] LABS: ALBUMIN 2.7 g/dL (3.2-5.5); ALBUMIN/GLOBULIN RATIO 0.5 (1.0-2.2); BILIRUBIN,TOTAL 0.5 mg/dL (0.2-1.0); CREATININE 0.7 mg/dL (0.6-1.2); TOTAL PROTEIN 7.9 g/dL (6.7-8.2)
[2018-07-22 09:59] LABS: HB2 TOTAL 9.8 g/dL; HEMOGLOBIN A1C 0.6 g/dL; HEMOGLOBIN A1C % 7.8 % (4.6-6.2)
--- NOTE | 2018-07-24 08:58 | CT Report ---
Reason: COUGH,CAD, ANEMIA, CHRONIC, WEIGHT LOSS Procedure Date: 07/22/2018 Accession Number: [id number] / [id number] Procedure: CT - ANGIO CHEST W/WO CPT Code: FULL RESULT: EXAM: CT ANGIOGRAM CHEST EXAM DATE: 07/22/2018 09:11 AM. CLINICAL HISTORY: COUGH,CAD, ANEMIA, CHRONIC, WEIGHT LOSS. COMPARISON: None. TECHNIQUE: Routine helical imaging was performed through the chest in the pulmonary arterial phase. IV Contrast: CE. Reconstructions: Coronal 3-D MIP reconstructions.Sagittal and coronal. In accordance with CT protocol optimization, one or more of the following dose reduction techniques were utilized for this exam: automated exposure control, adjustment of mA and/or KV based on patient size, or use of iterative reconstructive technique. FINDINGS: Pulmonary Arteries: Diagnostic quality: Adequate through the segmental arteries. No evidence for acute or chronic pulmonary emboli. Lungs/Pleura: There is no pulmonary mass. Increased lung markings are noted within both lung bases that most likely represent atelectasis or scarring. Mediastinum: There are postoperative changes consistent with a median sternotomy. No mediastinal mass is identified. Thoracic Aorta: There is atherosclerosis of the thoracic aorta. Atherosclerosis of the coronary arteries is noted. Upper Abdomen: A perihepatic fluid collection containing gas is noted at the level of the anterior dome of the liver. It measures approximately 4.5 x 9.2 x 4.6 cm (image 105 of series 4 and image 42 of series 11). This most likely represents an abscess. There are postoperative changes consistent with a cholecystectomy. The spleen, pancreas, and adrenal glands demonstrate a normal noncontrast CT appearance. There are degenerative changes of the thoracic spine. Degenerative changes of both shoulders are noted. IMPRESSION: Probable perihepatic, sub-diaphragmatic abscess. No evidence of a pulmonary embolus. Atherosclerosis of the aorta and coronary arteries. RADIA The call report notification system was initiated by Dr. Gloria Matute at 08:51 AM on 07/24/2018. ADDENDUM: 07/24/18 09:05 The above call report findings were discussed with Dr. Talbot's nurse, Jolynn by Dr. Gloria Matute at 09:05 AM on 07/24/2018.
== END 2018-07-22 08:29 | disposition home or self-care (01) ==
LOC: DI 08:28
PROVIDERS: ATTEND Family Medicine
DX: R05 Cough (principal); I25.10 Atherosclerotic heart disease of native coronary artery without angina pectoris; E11.9 Type 2 diabetes mellitus without complications; D53.9 Nutritional anemia, unspecified; R63.4 Abnormal weight loss; I70.0 Atherosclerosis of aorta
CPT/HCPCS: 36415; 71275; 80053; 83036; 85025; Q9967

== ENCOUNTER 2018-07-26 12:32 | Outpatient (CLI) | payer OTHER ==
[2018-07-26] MEDS ORDERED: IOVERSOL 320 50 ML VIAL ONE (12:44)
[2018-07-26] MEDS ORDERED: IOVERSOL 320 100 ML VIAL IVP ONE ×2 (12:44→15:15)
--- NOTE | 2018-07-26 14:44 | CT Report ---
Reason: UPPER ABDOMINAL ABSCESS,RIGHT,ABNORMAL CHEST CT SC Procedure Date: 07/26/2018 Accession Number: [id number] / [id number] Procedure: CT - Abdomen/Pelvis W CPT Code: FULL RESULT: EXAM: CT ABDOMEN AND PELVIS EXAM DATE: 07/26/2018 01:54 PM. CLINICAL HISTORY: Recent laparoscopic cholecystectomy. Now with abdominal pain. Abnormal CT chest 07/22/2018 COMPARISONS: ABDOMEN/PELVIS W/ 05/27/2018 2:57 AM CHEST ANGIO 07/22/2018 8:52 AM. TECHNIQUE: Routine helical CT imaging was performed through the abdomen and pelvis. IV contrast: OPTI 320 100mL. Enteric contrast: No. Reconstructions: Coronal and sagittal. In accordance with CT protocol optimization, one or more of the following dose reduction techniques were utilized for this exam: automated exposure control, adjustment of mA and/or KV based on patient size, or use of iterative reconstructive technique. FINDINGS: Lung Bases: Unremarkable. Liver: Compared to 07/22/2018 CT chest exam, there is little change in the right subphrenic air-containing fluid collection. Current dimensions are 7 x 3.5 x 7 cm diameter. The fluid collection abuts the anterior superior right lobe liver and may be contiguous with the gallbladder bed where there is a small postoperative biloma. Gallbladder/Bile Ducts: Status post cholecystectomy. Small postoperative biloma in the gallbladder fossa. Spleen: Normal. Pancreas: Normal. Adrenal Glands: Normal. Kidneys: Normal. No masses or hydronephrosis. Peritoneal Cavity/Bowel: Normal. No free fluid, free air or adenopathy. No masses or acute inflammatory process. The appendix is well visualized and normal. Pelvic Organs: Normal. The bladder and visualized pelvic organs are within normal limits. Vasculature: No aneurysms or other significant abnormality. Bones: No significant abnormality. Other: None. IMPRESSION: 1. There is an approximate 7 cm maximal diameter postoperative right subphrenic fluid collection most likely representing either an infected biloma or an abscess. 2. Status post cholecystectomy. 3. No other significant abnormality. RADIA
[2018-07-26] MEDS ORDERED: IOVERSOL 320 50 ML VIAL PO ONE (15:15)
== END 2018-07-26 12:33 | disposition home or self-care (01) ==
LOC: DI 12:32
PROVIDERS: ATTEND Family Medicine
DX: L02.211 Cutaneous abscess of abdominal wall (principal); R91.8 Other nonspecific abnormal finding of lung field; Z90.49 Acquired absence of other specified parts of digestive tract
CPT/HCPCS: 74177; Q9967

== ENCOUNTER 2018-08-03 20:29 | Emergency (ER) | payer OTHER ==
[2018-08-03 20:44] VITALS: BP 134/88
[2018-08-03 21:04] LABS: BASOPHILS % (AUTO) 0.4 %; EOSINOPHILS # (AUTO) 0.2 10^3/uL (0.0-0.7); EOSINOPHILS % (AUTO) 1.7 %; HGB - HEMOGLOBIN 11.1 g/dL (14.0-18.0); LYMPHOCYTES # (AUTO) 1.4 10^3/uL (1.5-3.5); LYMPHOCYTES % (AUTO) 13.4 %; MEAN CORPUSCULAR HEMOGLOBIN 30.5 pg (27.0-31.0); MEAN CORPUSCULAR HGB CONC 32.5 g/dL (32.0-36.0); MEAN CORPUSCULAR VOLUME 93.8 fL (80.0-94.0); MEAN PLATELET VOLUME 8.2 fL (7.4-11.4); MONOCYTES # (AUTO) 0.8 10^3/uL (0.0-1.0); MONOCYTES % (AUTO) 7.2 %; NEUTROPHILS # (AUTO) 8.3 10^3/uL (1.5-6.6); NEUTROPHILS % (AUTO) 77.3 %; PLT - PLATELET COUNT 446 10^3/uL (130-450); RED BLOOD COUNT 3.64 10^6/uL (4.70-6.10); RED CELL DISTRIBUTION WIDTH 16.3 % (12.0-15.0); WHITE BLOOD COUNT 10.8 x10^3/uL (4.8-10.8)
[2018-08-03 21:14] LABS: ALBUMIN 3.5 g/dL (3.2-5.5); ALBUMIN/GLOBULIN RATIO 0.7 (1.0-2.2); BILIRUBIN,TOTAL 0.4 mg/dL (0.2-1.0); CALCIUM 9.1 mg/dL (8.5-10.3); CREATININE 0.8 mg/dL (0.6-1.2); TOTAL PROTEIN 8.4 g/dL (6.7-8.2)
--- NOTE | 2018-08-03 21:25 | ED Physician Documentation ---
PD HPI BACK PAIN - Stated complaint Stated Complaint: BACK PX - Chief complaint Chief Complaint: Abd Pain - History obtained from History obtained from: Patient - History of Present Illness Timing - onset: Enter time (18:00), Today Timing - details: Gradual onset, Waxing and waning, Still present in ED (significantly improved after taking hydrocodone) Location: Mid, Right Quality: Pain Associated symptoms: No: Fever Improves with: Nothing Worsened by: Other (lying supine or on right side increases dyspnea) Recently seen: Surgery - Additional information Additional information: patient had cholecystectomy last month. He subsequently developed a bile collection versus abscess, noted on a CAT scan on July 26, and thus underwent surgical drainage with insertion of a drain on August 01 at [facility]. He presents due to right flank and right back pain since 4 PM today with mild shortness of breath. he reports substantial improvement after taking hydrocodone prior to arrival. Review of Systems Constitutional: reports: Reviewed and negative Cardiac: reports: Reviewed and negative Respiratory: reports: Dyspnea, Cough (recurrent cough since stacey last month) GI: reports: Abdominal Pain (right back pain to right flank; he says it is not truly anterior/RUQ pain per se (which he had with initial symptoms and subsequent bile leak)). denies: Nausea, Vomiting : denies: Dysuria, Frequency Skin: denies: Rash Musculoskeletal: reports: Back pain PD PAST MEDICAL HISTORY - Past Medical History Past Medical History: Yes Cardiovascular: Hypertension, High cholesterol, Coronary artery disease, Arrhythmia Respiratory: None Neuro: None Endocrine/Autoimmune: Type 2 diabetes GI: None, Cholelithiasis : None Musculoskeletal: None - Past Surgical History Past Surgical History: Yes General: Cholecystectomy, Other Ortho: Hip replacement Cardiovascular: CABG, Pacemaker - Present Medications Home Medications: Ambulatory Orders Medication Instructions Recorded Confirmed Amlodipine Besylate 10 mg PO DAILY 11/19/12 08/03/18 Aspirin [Aspir 81] 81 mg PO BID 11/19/12 08/03/18 Atorvastatin Calcium [Lipitor] 40 mg PO QPM 11/19/12 08/03/18 Metformin HCl [Glumetza] 1,000 mg PO BID 11/19/12 08/03/18 Metoprolol Succinate [Toprol Xl] 37.5 mg PO BID 02/26/13 08/03/18 Clopidogrel [Plavix] 75 mg PO DAILY 02/26/18 08/03/18 Acetaminophen/Diphenhydramine 1 tab PO QPM PRN 06/26/18 08/03/18 [Tylenol Pm Ex-Strength Caplet] Cholecalciferol (Vitamin D3) 1,000 unit PO DAILY 06/26/18 08/03/18 [Vitamin D3] Magnesium Oxide [Magnesium] 400 mg PO DAILY 06/26/18 08/03/18 Hydrocodone/Acetaminophen 1 each PO PRN PRN 08/03/18 08/03/18 [Hydrocodone-Acetamin 5-325 mg] Levofloxacin [Levaquin] 750 mg PO DAILY 08/03/18 08/03/18 metroNIDAZOLE [Metronidazole] 500 mg PO TID 08/03/18 08/03/18 - Allergies Allergies/Adverse Reactions: Allergies Allergy/AdvReac Type Severity Reaction Status Date / Time lisinopril Allergy Severe ANGIOEDEMA Verified 08/03/18 20:44 oxycodone HCl * AdvReac Severe psychosis Verified 08/03/18 20:44 [From OxyContin] - Social History Does the pt smoke?: No Smoking Status: Never smoker Does the pt drink ETOH?: Yes Does the pt have substance abuse?: No - Immunizations Immunizations are current?: No Immunizations: TDAP >10years/unknown - POLST Patient has POLST: No PD ED PE NORMAL - Vitals Vital signs reviewed: Yes - General General: Alert and oriented X 3, No acute distress, Well developed/nourished - Cardiac Cardiac: RRR, No murmur, No gallop, No rub - Respiratory Respiratory: No respiratory distress, Clear bilaterally - Abdomen Abdomen: Normal bowel sounds, Soft, Non tender, Non distended, Other (RUQ drain in place, no significant tenderness, and translucent bile is noted in tubing and collection bag) - Back Back: No CVA TTP, No spinal TTP - Derm Derm: Normal color, Warm and dry, No rash Results - Vitals Vitals: Oxygen O2 Source Room air - Labs Labs: Laboratory Tests 08/03/18 08/03/18 20:58 20:58 WBC 10.8 RBC 3.64 L Hgb 11.1 L Hct 34.1 L MCV 93.8 MCH 30.5 MCHC 32.5 RDW 16.3 H Plt Count 446 MPV 8.2 Neut # (Auto) 8.3 H Lymph # (Auto) 1.4 L [place] # (Auto) 0.8 Eos # (Auto) 0.2 Baso # (Auto) 0.0 Absolute Nucleated RBC 0.00 Nucleated RBC % 0.0 Sodium 137 Potassium 3.9 Chloride 98 L Carbon Dioxide 22 Anion Gap 17.0 H BUN 15 Creatinine 0.8 Estimated GFR (MDRD) 95 Glucose 173 H Calcium 9.1 Total Bilirubin 0.4 AST 30 ALT 35 Alkaline Phosphatase 118 Total Protein 8.4 H Albumin 3.5 Globulin 4.9 H Albumin/Globulin Ratio 0.7 L Lipase 34 - Rads (name of study) chest xray Radiology: Prelim report reviewed, See rad report PD MEDICAL DECISION MAKING - ED course Complexity details: reviewed old records, reviewed results, re-evaluated patient, considered differential, d/w patient ED course: patient is well appearing and in no apparent distress. He says that he has had such significant improvement with one dose of hydrocodone that he would be comfortable with discharge home and continuing to take hydrocodone as prescribed and return if worse and follow up with his surgical group. he was agreeable to blood tests and chest x-ray, and these are reassuring in results. I explained to him that he needs to return immediately if symptoms worsen in any way, including development of new symptoms or signs such as fever. In such a case, he would most likely benefit from a CAT scan. However, with his reassuring blood tests and unremarkable exam, and excellent pain control with oral medication, CT scan can be deferred until such time as outpatient follow-up, or worsening symptoms. Patient expresses understanding of, and comfort with, this plan. Departure - Departure Disposition: 01 Home, Self Care Clinical Impression: Flank pain Condition: Good Instructions: ED Flank Pain Uncertain Cause Follow-Up: Kassandra Brown MD [Primary Care Provider] - Comments: Contact your surgeon in the morning to discuss your symptoms; further testing might be recommended. Discharge Date/Time: 08/03/18 23:09
--- NOTE | 2018-08-03 22:23 | XRAY Report ---
Reason: right chest pain, dyspnea Procedure Date: 08/03/2018 Accession Number: [id number] / [id number] Procedure: XR - Chest 2 View X-Ray CPT Code: 20852 FULL RESULT: EXAM: CHEST RADIOGRAPHY EXAM DATE: 08/03/2018 09:57 PM. CLINICAL HISTORY: Right chest pain, dyspnea. COMPARISON: CHEST 2 VIEW 07/21/2018 9:37 AM. TECHNIQUE: 2 views. FINDINGS: Lungs/Pleura: Minimal basilar atelectasis. Small right effusion, stable. No pneumothorax. Mediastinum: Postoperative changes of cardiac surgery. Stable pacemaker. Other: Surgical drain in the right upper quadrant. IMPRESSION: Minimal bibasilar atelectasis and small right effusion. RADIA
== END 2018-08-03 23:09 | disposition home or self-care (01) ==
LOC: ED 20:29
DX: R10.31 Right lower quadrant pain (principal); I10 Essential (primary) hypertension; E78.00 Pure hypercholesterolemia, unspecified; E11.8 Type 2 diabetes mellitus with unspecified complications; I25.10 Atherosclerotic heart disease of native coronary artery without angina pectoris; Z96.649 Presence of unspecified artificial hip joint; Z95.1 Presence of aortocoronary bypass graft; Z95.0 Presence of cardiac pacemaker; Z79.82 Long term (current) use of aspirin
CPT/HCPCS: 36415; 71046; 80053; 83690; 85025; 99283; 99284

== ENCOUNTER 2018-10-10 09:48 | Outpatient (CLI) | payer OTHER ==
[2018-10-10 10:29] LABS: BASOPHILS % (AUTO) 0.5 %; EOSINOPHILS # (AUTO) 0.3 10^3/uL (0.0-0.7); EOSINOPHILS % (AUTO) 5.6 %; HGB - HEMOGLOBIN 12.2 g/dL (14.0-18.0); LYMPHOCYTES # (AUTO) 1.9 10^3/uL (1.5-3.5); LYMPHOCYTES % (AUTO) 30.9 %; MEAN CORPUSCULAR HGB CONC 33.3 g/dL (32.0-36.0); MEAN CORPUSCULAR VOLUME 96.1 fL (80.0-94.0); MEAN PLATELET VOLUME 10.7 fL (7.4-11.4); MONOCYTES # (AUTO) 0.5 10^3/uL (0.0-1.0); MONOCYTES % (AUTO) 8.1 %; NEUTROPHILS # (AUTO) 3.3 10^3/uL (1.5-6.6); NEUTROPHILS % (AUTO) 54.6 %; PLT - PLATELET COUNT 277 10^3/uL (130-450); RED BLOOD COUNT 3.81 10^6/uL (4.70-6.10); RED CELL DISTRIBUTION WIDTH 14.5 % (12.0-15.0)
[2018-10-10 10:34] LABS: CALCIUM 9.2 mg/dL (8.5-10.3); CREATININE 0.7 mg/dL (0.6-1.2); MAGNESIUM 1.3 mg/dL (1.7-2.8)
== END 2018-10-10 09:49 | disposition home or self-care (01) ==
LOC: LAB 09:48
PROVIDERS: ATTEND Internal Medicine Cardiovascular Disease
DX: I10 Essential (primary) hypertension (principal)
CPT/HCPCS: 36415; 80048; 83735; 83880; 84443; 85025

== ENCOUNTER 2018-10-23 08:45 | Outpatient (CLI) | payer OTHER ==
[2018-10-23 09:40] LABS: % IRON SATURATION 14 % (20-50); IRON 61 ug/dL (45-182); TOTAL IRON BINDING CAPACITY 433 ug/dL (250-450); TRANSFERRIN 309 mg/dL (180-329)
[2018-10-23 09:47] LABS: FERRITIN 25.1 ng/mL (23.9-336.2)
[2018-10-23 09:50] LABS: FOLATE 11.15 ng/mL (5.90 - >24.8)
== END 2018-10-23 08:46 | disposition home or self-care (01) ==
LOC: LAB 08:45
PROVIDERS: ATTEND Family Medicine
DX: D64.9 Anemia, unspecified (principal)
CPT/HCPCS: 36415; 82607; 82728; 82746; 83540; 84466

== ENCOUNTER 2019-03-07 08:44 | Outpatient (CLI) | payer MEDICARE, OTHER ==
--- NOTE | 2019-03-07 21:50 | XRAY Report ---
Reason: RIGHT HIP PAIN Procedure Date: 03/07/2019 Accession Number: [id number] / [id number] Procedure: WCP - Hip 1 View RT CPT Code: Final Report FULL RESULT: EXAM: PELVIS AND RIGHT HIP RADIOGRAPHY EXAM DATE: 03/07/2019 08:44 AM. CLINICAL HISTORY: Chronic pain. COMPARISON: 03/27/2015 4:28 PM. TECHNIQUE: Pelvis and right hip, each 1 view. FINDINGS: Bones: No definite fracture or other bone lesion. Joints: Minimal right hip joint space narrowing with marginal lipping. Left total hip prosthesis in anatomic alignment. No abnormal lucency associated with the prosthesis. Degenerative changes in lower lumbar spine. Unremarkable SI joints. Soft Tissues: Vascular calcifications. Small soft tissue calcifications arising from right greater trochanter. IMPRESSION: 1. Minimal right hip degenerative changes; calcific periarthritis of right hip. 2. Status post left THR and other chronic findings. RADIA
== END 2019-03-07 23:59 | disposition home or self-care (01) ==
LOC: DI.WCP 08:44
PROVIDERS: ATTEND Family Medicine
DX: M16.11 Unilateral primary osteoarthritis, right hip (principal); Z96.642 Presence of left artificial hip joint

== ENCOUNTER 2019-10-22 08:25 | Outpatient (CLI) | payer MEDICARE ==
[2019-10-22 08:53] LABS: ALBUMIN 4.2 g/dL (3.2-5.5); ALBUMIN/GLOBULIN RATIO 1.2 (1.0-2.2); ALKALINE PHOSPHATASE 67 IU/L (42-121); ALT ALANINE AMINOTRANSFERASE 22 IU/L (10-60); AST ASPARTATE AMINOTRANSFERASE 24 IU/L (10-42); BILIRUBIN,TOTAL 0.6 mg/dL (0.2-1.0); BUN - BLOOD UREA NITROGEN 15 mg/dL (6-20); CALCIUM 9.3 mg/dL (8.5-10.3); CARBON DIOXIDE - CO2 29 mmol/L (21-32); CHLORIDE 95 mmol/L (101-111); CHOL/HDL RATIO 2.2 (<5.0); CHOLESTEROL 123 mg/dL; CREATININE 0.9 mg/dL (0.6-1.2); GLUCOSE 107 mg/dL (70-100); HDL CHOLESTEROL 57 mg/dL; LDL CHOLESTEROL,CALCULATED 53 mg/dL; LDL/HDL RATIO 0.9 (<3.6); MAGNESIUM 1.3 mg/dL (1.7-2.8); SODIUM 133 mmol/L (135-145); TOTAL PROTEIN 7.8 g/dL (6.7-8.2); VLDL CHOLESTEROL 13 mg/dL
== END 2019-10-22 08:26 | disposition home or self-care (01) ==
LOC: LAB 08:25
PROVIDERS: ATTEND Internal Medicine Cardiovascular Disease
DX: E78.5 Hyperlipidemia, unspecified (principal)
CPT/HCPCS: 36415; 80053; 80061; 83721; 83735

== ENCOUNTER 2019-11-14 09:04 | Outpatient (CLI) | payer MEDICARE | END 2019-11-14 23:59 | disposition home or self-care (01) | LOC: LAB.R 09:04 | PROVIDERS: ATTEND Family Medicine | DX: D64.9 Anemia, unspecified (principal) | CPT/HCPCS: 82274 ==

== ENCOUNTER 2020-01-24 08:29 | Day surgery (SDC) | payer MEDICARE ==
[2020-01-24] MEDS ORDERED: LACTATED RINGERS 1,000 ML IV ONE ×2 (08:48→12:34)
[2020-01-24] MEDS ORDERED: MIDAZOLAM 2 MG/2 ML VIAL IVP ONE (11:19)
[2020-01-24] MEDS ORDERED: fentaNYL 250 MCG/5 ML VIAL IVP ONE (11:19)
[2020-01-24 14:08] VITALS: BP 133/64
== END 2020-01-24 08:30 | disposition home or self-care (01) ==
LOC: SDS 08:29
PROVIDERS: ATTEND Surgery
PROC: 0DBL8ZZ Excision of Transverse Colon, Via Natural or Artificial Opening Endoscopic (ICD-10-PCS; 2020-01-24)
PROC: 0DBH8ZZ Excision of Cecum, Via Natural or Artificial Opening Endoscopic (ICD-10-PCS; 2020-01-24)
PROC: 0DBK8ZZ Excision of Ascending Colon, Via Natural or Artificial Opening Endoscopic (ICD-10-PCS; principal; 2020-01-24 08:30)
DX: R19.5 Other fecal abnormalities (principal); D12.0 Benign neoplasm of cecum; D12.2 Benign neoplasm of ascending colon; D12.3 Benign neoplasm of transverse colon; Q43.8 Other specified congenital malformations of intestine; K64.8 Other hemorrhoids; Z79.02 Long term (current) use of antithrombotics/antiplatelets; I10 Essential (primary) hypertension
CPT/HCPCS: 45384; J3010; J7120

== ENCOUNTER 2020-02-19 08:30 | Outpatient (CLI) | payer MEDICARE ==
--- NOTE | 2020-02-19 17:08 | CT Report ---
PROCEDURE: LUMBAR SPINE WO INDICATIONS: LUMBAR RADICULOPATHY TECHNIQUE: Noncontrast 3 mm thick sections acquired from the T12 level to the sacrum. Sagittal and coronal refo rmats were constructed. For radiation dose reduction, the following was used: automated exposure co ntrol, adjustment of mA and/or kV according to patient size. COMPARISON: None. FINDINGS: Image quality: Excellent. Bones: There is no fractures or dislocations. There is trace retrolisthesis of L2 on L3, L3 on L4, L 4 on L5 and trace anterolisthesis of L5 on S1. Bridging anterior osteophytes are present at T11-12, T 12-L1, L1-L2, partially bridging at L3-4, L4-5 and L5-S1. No suspicious osseous lesions are identifie d. Severe disc space narrowing with vacuum disc is noted at L5-S1. Mild disc space narrowing is present at L1-L2 and moderate to severe at T11-12 and T12-L1. Mild disc bulges are present at L1-L2, L2-3, L3 -4, L4-5 and L5-S1. Minimal spinal stenosis is present at L2-3, moderate to severe L3-4, moderate L4- 5, L5-S1. Minimal bilateral foraminal narrowing is present at L1-L2, mild to moderate bilateral L2-3, L3-4, severe bilateral L4-5 with flattening of the exiting L4 nerve roots bilaterally, severe L5-S1 with flattening of the exiting L5 nerve roots bilaterally. Multilevel facet and ligamentum flavum hyp ertrophy are present. Soft tissues: No retroperitoneal masses or hematomas. Visualized aorta is normal in caliber. IMPRESSION: 1. Multilevel disc bulges. 2. Multilevel spinal stenosis most notable at L3-4 secondary to disc bulge with contributing effect o f facet/ligamentum flavum arthropathy. 3. Multilevel foraminal narrowing severe at L4-5 and L5-S1 secondary to facet arthropathy. Reviewed by: Roxana Myers MD on 02/19/2020 5:07 PM PST Approved by: Roxana Myers MD on 02/19/2020 5:07 PM PST Station ID: [id number]
== END 2020-02-19 08:31 | disposition home or self-care (01) ==
LOC: DI 08:30
PROVIDERS: ATTEND Physical Medicine & Rehabilitation
DX: M51.16 Intervertebral disc disorders with radiculopathy, lumbar region (principal); M48.061 Spinal stenosis, lumbar region without neurogenic claudication
CPT/HCPCS: 72131

== ENCOUNTER 2020-05-22 08:39 | Outpatient (CLI) | payer MEDICARE ==
[2020-05-22 08:59] LABS: BASOPHILS # (AUTO) 0.1 10^3/uL (0.0-0.1); BASOPHILS % (AUTO) 0.9 %; EOSINOPHILS # (AUTO) 0.8 10^3/uL (0.0-0.7); EOSINOPHILS % (AUTO) 11.4 %; HGB - HEMOGLOBIN 12.5 g/dL (14.0-18.0); LYMPHOCYTES # (AUTO) 2.1 10^3/uL (1.5-3.5); MEAN CORPUSCULAR HEMOGLOBIN 33.2 pg (27.0-31.0); MEAN CORPUSCULAR HGB CONC 33.2 g/dL (32.0-36.0); MEAN PLATELET VOLUME 10.1 fL (7.4-11.4); MONOCYTES # (AUTO) 0.5 10^3/uL (0.0-1.0); MONOCYTES % (AUTO) 6.8 %; NEUTROPHILS # (AUTO) 3.5 10^3/uL (1.5-6.6); NEUTROPHILS % (AUTO) 50.5 %; PLT - PLATELET COUNT 262 10^3/uL (130-450); RED BLOOD COUNT 3.76 10^6/uL (4.70-6.10); RED CELL DISTRIBUTION WIDTH 11.9 % (12.0-15.0); WHITE BLOOD COUNT 6.9 x10^3/uL (4.8-10.8)
[2020-05-22 09:10] LABS: MICROALBUM/CREATININE RATIO,UR 5.3 ug/mg (<30.0); MICROALBUMIN,URINE 0.6 mg/dL (0-300.0)
[2020-05-22 09:18] LABS: % IRON SATURATION 16 % (20-50); ALBUMIN 4.5 g/dL (3.2-5.5); ALBUMIN/GLOBULIN RATIO 1.4 (1.0-2.2); ALKALINE PHOSPHATASE 71 IU/L (42-121); ALT ALANINE AMINOTRANSFERASE 24 IU/L (10-60); AST ASPARTATE AMINOTRANSFERASE 26 IU/L (10-42); BILIRUBIN,TOTAL 0.4 mg/dL (0.2-1.0); BUN - BLOOD UREA NITROGEN 11 mg/dL (6-20); CALCIUM 9.2 mg/dL (8.5-10.3); CARBON DIOXIDE - CO2 28 mmol/L (21-32); CHLORIDE 92 mmol/L (101-111); CHOL/HDL RATIO 2.2 (<5.0); CHOLESTEROL 132 mg/dL; CREATININE 0.8 mg/dL (0.6-1.2); GLUCOSE 126 mg/dL (70-100); HDL CHOLESTEROL 61 mg/dL; IRON 76 ug/dL (45-182); LDL CHOLESTEROL,CALCULATED 55 mg/dL; LDL/HDL RATIO 0.9 (<3.6); MAGNESIUM 1.4 mg/dL (1.7-2.8); TOTAL IRON BINDING CAPACITY 466 ug/dL (250-450); TOTAL PROTEIN 7.8 g/dL (6.7-8.2); TRANSFERRIN 333 mg/dL (180-329); VLDL CHOLESTEROL 16 mg/dL
[2020-05-22 12:08] LABS: HEMOGLOBIN A1c% 6.2 % (4.27-6.07)
== END 2020-05-22 08:40 | disposition home or self-care (01) ==
LOC: LAB 08:39
PROVIDERS: ATTEND Family Medicine
DX: E11.9 Type 2 diabetes mellitus without complications (principal); E78.5 Hyperlipidemia, unspecified; D64.9 Anemia, unspecified; N40.1 Benign prostatic hyperplasia with lower urinary tract symptoms; N13.8 Other obstructive and reflux uropathy; I48.92 Unspecified atrial flutter; R63.4 Abnormal weight loss
CPT/HCPCS: 36415; 80053; 80061; 82043; 82570; 82607; 82728; 83036; 83540; 83721; 83735; 84153; 84443; 84466; 85025

== ENCOUNTER 2020-06-20 08:59 | Outpatient (CLI) | payer MEDICARE ==
[2020-06-20] MEDS ORDERED: IOVERSOL 320 100 ML VIAL IVP ONE ×2 (09:18→10:48)
[2020-06-20] MEDS ORDERED: IOPAMIDOL-300 50 ML VIAL ONE (09:18)
[2020-06-20] MEDS ORDERED: IOPAMIDOL-300 50 ML VIAL PO ONE (10:48)
--- NOTE | 2020-06-20 17:35 | CT Report ---
PROCEDURE: Abdomen/Pelvis W INDICATIONS: HX OF CHOLECYSTECTOMY, ABD BLOATING CONTRAST: IV CONTRAST: Optiray 320 ml: 100 PO CONTRAST: Isovue 300 ml50 TECHNIQUE: After the administration of oral and intravenous contrast, 5 mm thick sections acquired from the diap hragms to the symphysis. 5 mm thick coronal and sagittal reformats were acquired. For radiation dos e reduction, the following was used: automated exposure control, adjustment of mA and/or kV accordin g to patient size. COMPARISON: CT abdomen and pelvis with contrast, 07/26/2018. FINDINGS: Image quality: Excellent. ABDOMEN: Lung bases: There are right middle lobe and left lower lobe scars and atelectasis. Heart size is pro bably increased. There is a cardiac pacemaker. Small hiatal hernia. Solid organs: Liver and spleen are normal in size and enhancement. Gallbladder is surgically absent . Biliary system is non dilated. Pancreas enhances normally. No adrenal nodules. Kidneys demonstr ate normal size and enhancement, without hydronephrosis. Peritoneum and bowel: Bowel loops demonstrate normal wall thickness and caliber. There are multiple colonic diverticula involving the ascending and sigmoid colon. No CT findings to suggest acute diver ticulitis. Moderate amount of stool in colon. No free fluid or air. Nodes and vessels: No retroperitoneal or mesenteric adenopathy by size criteria. Aorta and inferior vena cava are normal in size. Severe atherosclerotic calcifications. Miscellaneous: No ventral hernias. PELVIS: Genitourinary: Bladder wall thickness is normal. Miscellaneous: No inguinal adenopathy. Fat-containing left inguinal hernia is noted. Bones: No suspicious bony lesions. No vertebral body compression fractures. Degenerative changes i n lumbar spine. There is a left hip prosthesis. IMPRESSION: 1. No acute intra-abdominal or pelvic process. 2. Diverticulosis without acute diverticulitis. 3. Severe atherosclerosis. 4. Small hiatal hernia. Reviewed by: Samantha Fernandez MD on 06/20/2020 5:33 PM PST Approved by: Samantha Fernandez MD on 06/20/2020 5:33 PM PST Station ID: [id number]
== END 2020-06-20 09:00 | disposition home or self-care (01) ==
LOC: DI 08:59
PROVIDERS: ATTEND Family Medicine
DX: R14.0 Abdominal distension (gaseous) (principal); Z90.49 Acquired absence of other specified parts of digestive tract; Z86.19 Personal history of other infectious and parasitic diseases; K57.30 Diverticulosis of large intestine without perforation or abscess without bleeding; K44.9 Diaphragmatic hernia without obstruction or gangrene
CPT/HCPCS: 74177; Q9967

== ENCOUNTER 2020-12-26 08:57 | Outpatient (CLI) | payer MEDICARE ==
[2020-12-26 09:23] LABS: BASOPHILS % (AUTO) 0.5 %; EOSINOPHILS # (AUTO) 0.6 10^3/uL (0.0-0.7); EOSINOPHILS % (AUTO) 9.6 %; HCT - HEMATOCRIT 38.2 % (42.0-52.0); HGB - HEMOGLOBIN 12.8 g/dL (14.0-18.0); LYMPHOCYTES # (AUTO) 1.8 10^3/uL (1.5-3.5); LYMPHOCYTES % (AUTO) 29.5 %; MEAN CORPUSCULAR HEMOGLOBIN 33.1 pg (27.0-31.0); MEAN CORPUSCULAR HGB CONC 33.5 g/dL (32.0-36.0); MEAN CORPUSCULAR VOLUME 98.7 fL (80.0-94.0); MEAN PLATELET VOLUME 10.2 fL (7.4-11.4); MONOCYTES # (AUTO) 0.4 10^3/uL (0.0-1.0); NEUTROPHILS # (AUTO) 3.3 10^3/uL (1.5-6.6); NEUTROPHILS % (AUTO) 53.1 %; PLT - PLATELET COUNT 284 10^3/uL (130-450); RED BLOOD COUNT 3.87 10^6/uL (4.70-6.10); RED CELL DISTRIBUTION WIDTH 11.9 % (12.0-15.0); WHITE BLOOD COUNT 6.1 x10^3/uL (4.8-10.8)
[2020-12-26 09:33] LABS: ALBUMIN 4.3 g/dL (3.2-5.5); ALBUMIN/GLOBULIN RATIO 1.1 (1.0-2.2); ALKALINE PHOSPHATASE 66 IU/L (42-121); ALT ALANINE AMINOTRANSFERASE 26 IU/L (10-60); AST ASPARTATE AMINOTRANSFERASE 30 IU/L (10-42); BILIRUBIN,TOTAL 0.7 mg/dL (0.2-1.0); BUN - BLOOD UREA NITROGEN 12 mg/dL (6-20); CALCIUM 9.3 mg/dL (8.5-10.3); CARBON DIOXIDE - CO2 28 mmol/L (21-32); CHLORIDE 92 mmol/L (101-111); CHOL/HDL RATIO 2.1 (<5.0); CHOLESTEROL 126 mg/dL; CREATININE 0.9 mg/dL (0.6-1.2); GFR - MDRD 82 (>89); GLUCOSE 125 mg/dL (70-100); HDL CHOLESTEROL 59 mg/dL; LDL CHOLESTEROL,CALCULATED 52 mg/dL; LDL/HDL RATIO 0.9 (<3.6); POTASSIUM 4.6 mmol/L (3.5-5.0); SODIUM 131 mmol/L (135-145); TOTAL PROTEIN 8.1 g/dL (6.7-8.2); TRIGLYCERIDES 75 mg/dL; VLDL CHOLESTEROL 15 mg/dL
[2020-12-26 13:06] LABS: CREATININE,URINE 156.7 mg/dL; MICROALBUM/CREATININE RATIO,UR 8.3 ug/mg (<30.0); MICROALBUMIN,URINE 1.3 mg/dL (0-300.0)
[2020-12-26 14:29] LABS: ESTIMATED AVERAGE GLUCOSE 137 mg/dL (70-100); HEMOGLOBIN A1c% 6.4 % (4.27-6.07)
== END 2020-12-26 08:58 | disposition home or self-care (01) ==
LOC: LAB 08:57
PROVIDERS: ATTEND Family Medicine
DX: E11.9 Type 2 diabetes mellitus without complications (principal); N40.1 Benign prostatic hyperplasia with lower urinary tract symptoms; I25.10 Atherosclerotic heart disease of native coronary artery without angina pectoris; N13.8 Other obstructive and reflux uropathy
CPT/HCPCS: 36415; 80053; 80061; 82043; 82570; 83036; 83721; 84153; 85025

== ENCOUNTER 2021-06-05 08:12 | Outpatient (CLI) | payer MEDICARE ==
[2021-06-05 08:45] LABS: BASOPHILS % (AUTO) 0.7 %; EOSINOPHILS # (AUTO) 0.2 10^3/uL (0.0-0.7); EOSINOPHILS % (AUTO) 3.9 %; HCT - HEMATOCRIT 35.2 % (42.0-52.0); HGB - HEMOGLOBIN 11.7 g/dL (14.0-18.0); LYMPHOCYTES # (AUTO) 1.7 10^3/uL (1.5-3.5); LYMPHOCYTES % (AUTO) 29.3 %; MEAN CORPUSCULAR HEMOGLOBIN 31.4 pg (27.0-31.0); MEAN CORPUSCULAR HGB CONC 33.2 g/dL (32.0-36.0); MEAN CORPUSCULAR VOLUME 94.4 fL (80.0-94.0); MEAN PLATELET VOLUME 10.6 fL (7.4-11.4); MONOCYTES # (AUTO) 0.6 10^3/uL (0.0-1.0); MONOCYTES % (AUTO) 10.1 %; NEUTROPHILS # (AUTO) 3.3 10^3/uL (1.5-6.6); NEUTROPHILS % (AUTO) 55.8 %; PLT - PLATELET COUNT 269 10^3/uL (130-450); RED BLOOD COUNT 3.73 10^6/uL (4.70-6.10); RED CELL DISTRIBUTION WIDTH 14.4 % (12.0-15.0); RETICULOCYTE COUNT % (AUTO) 1.61 % (0.5-2.3); WHITE BLOOD COUNT 5.9 x10^3/uL (4.8-10.8)
[2021-06-05 08:57] LABS: % IRON SATURATION 8 % (20-50); ALBUMIN 4.1 g/dL (3.2-5.5); ALBUMIN/GLOBULIN RATIO 1.1 (1.0-2.2); ALKALINE PHOSPHATASE 69 IU/L (42-121); ALT ALANINE AMINOTRANSFERASE 17 IU/L (10-60); AST ASPARTATE AMINOTRANSFERASE 19 IU/L (10-42); BILIRUBIN,TOTAL 0.6 mg/dL (0.2-1.0); BUN - BLOOD UREA NITROGEN 12 mg/dL (6-20); CALCIUM 9.3 mg/dL (8.5-10.3); CARBON DIOXIDE - CO2 27 mmol/L (21-32); CHLORIDE 97 mmol/L (101-111); CHOLESTEROL 100 mg/dL; CREATININE 0.9 mg/dL (0.6-1.2); GFR - MDRD 82 (>89); GLUCOSE 125 mg/dL (70-100); HDL CHOLESTEROL 50 mg/dL; IRON 40 ug/dL (45-182); LDL CHOLESTEROL,CALCULATED 39 mg/dL; LDL/HDL RATIO 0.8 (<3.6); MAGNESIUM 1.5 mg/dL (1.7-2.8); POTASSIUM 4.4 mmol/L (3.5-5.0); SODIUM 134 mmol/L (135-145); TOTAL IRON BINDING CAPACITY 511 ug/dL (250-450); TOTAL PROTEIN 7.7 g/dL (6.7-8.2); TRANSFERRIN 365 mg/dL (180-329); TRIGLYCERIDES 54 mg/dL; VLDL CHOLESTEROL 11 mg/dL
[2021-06-05 09:03] LABS: THYROID STIMULATING HORMONE 5.58 uIU/mL (0.34-5.60)
[2021-06-05 09:14] LABS: FOLATE 11.92 ng/mL (5.90 - >24.8)
== END 2021-06-05 08:13 | disposition home or self-care (01) ==
LOC: LAB 08:12
PROVIDERS: ATTEND Internal Medicine Cardiovascular Disease
DX: R06.02 Shortness of breath (principal); I10 Essential (primary) hypertension; D64.9 Anemia, unspecified
CPT/HCPCS: 36415; 80053; 80061; 82607; 82746; 83540; 83721; 83735; 83880; 84443; 84466; 85025; 85045

== ENCOUNTER 2021-06-18 09:59 | Outpatient (CLI) | payer MEDICARE ==
[2021-06-18 11:08] LABS: FECAL OCCULT BLOOD (FIT) POSITIVE (NEGATIVE)
== END 2021-06-18 10:00 | disposition home or self-care (01) ==
LOC: LAB 09:59
PROVIDERS: ATTEND Family Medicine
DX: D64.9 Anemia, unspecified (principal)
CPT/HCPCS: 82274

== ENCOUNTER 2021-08-25 08:08 | Outpatient (CLI) | payer MEDICARE ==
[2021-08-25 08:29] LABS: CALCIUM 9.1 mg/dL (8.5-10.3); MAGNESIUM 1.5 mg/dL (1.7-2.8); POTASSIUM 4.3 mmol/L (3.5-5.0)
== END 2021-08-25 08:09 | disposition home or self-care (01) ==
LOC: LAB 08:08
PROVIDERS: ATTEND Internal Medicine Cardiovascular Disease
DX: I50.22 Chronic systolic (congestive) heart failure (principal); Z20.822 Contact with and (suspected) exposure to COVID-19
CPT/HCPCS: 36415; 80048; 83735; 83880

== ENCOUNTER 2021-09-25 13:49 | Emergency (ER) | payer MEDICARE ==
[2021-09-25 14:45] LABS: BASOPHILS % (AUTO) 0.4 %; EOSINOPHILS # (AUTO) 0.3 10^3/uL (0.0-0.7); HCT - HEMATOCRIT 35.6 % (42.0-52.0); HGB - HEMOGLOBIN 11.3 g/dL (14.0-18.0); LYMPHOCYTES # (AUTO) 1.4 10^3/uL (1.5-3.5); LYMPHOCYTES % (AUTO) 18.5 %; MEAN CORPUSCULAR HGB CONC 31.7 g/dL (32.0-36.0); MEAN CORPUSCULAR VOLUME 97.5 fL (80.0-94.0); MEAN PLATELET VOLUME 10.3 fL (7.4-11.4); MONOCYTES # (AUTO) 0.5 10^3/uL (0.0-1.0); MONOCYTES % (AUTO) 6.9 %; NEUTROPHILS # (AUTO) 5.2 10^3/uL (1.5-6.6); NEUTROPHILS % (AUTO) 69.9 %; PLT - PLATELET COUNT 258 10^3/uL (130-450); RED BLOOD COUNT 3.65 10^6/uL (4.70-6.10); RED CELL DISTRIBUTION WIDTH 13.9 % (12.0-15.0); WHITE BLOOD COUNT 7.4 x10^3/uL (4.8-10.8)
[2021-09-25 15:00] LABS: BILIRUBIN,TOTAL 0.7 mg/dL (0.2-1.0); CALCIUM 9.8 mg/dL (8.5-10.3); CREATININE 1.1 mg/dL (0.6-1.2); POTASSIUM 5.1 mmol/L (3.5-5.0); TOTAL PROTEIN 7.9 g/dL (6.7-8.2)
--- NOTE | 2021-09-25 15:11 | CT Report ---
PROCEDURE: Abdomen/Pelvis WO INDICATIONS: abd pain TECHNIQUE: Noncontrast 5 mm thick sections acquired from the diaphragms to the symphysis. 5 mm coronal and sagi ttal reformats were then performed. For radiation dose reduction, the following was used: automated exposure control, adjustment of mA and/or kV according to patient size. COMPARISON: None. FINDINGS: Image quality: Excellent. ABDOMEN: Lung bases: Interval development of a moderate multilobulated right pleural effusion which has a subp ulmonic component, likely multiloculated. Interval development of a small left pleural effusion. Mild compressive atelectasis in the right lung base. Cardiomegaly. Pacemaker. Coronary artery calcificati ons. Solid organs: Liver and spleen are normal in size. Gallbladder is surgically absent. Pancreas is n ormal in contours. No adrenal nodules. Kidneys are normal in size, without hydronephrosis or nephro lithiasis. Peritoneum and bowel: Unenhanced bowel loops demonstrate normal wall thickness and caliber. Developm ent of mild abdominal and pelvic ascites. Nodes and vessels: No retroperitoneal or mesenteric adenopathy by size criteria. Aorta and inferior vena cava are normal in caliber. Extensive aortic and bilateral iliac atherosclerotic calcification s. Miscellaneous: No ventral hernias. PELVIS: Genitourinary: Bladder wall thickness is normal. Miscellaneous: No inguinal hernias or adenopathy. Bones: Lumbar degenerative change. No acute compression fractures. No lytic or blastic bony lesions. Total left hip arthroplasty. IMPRESSION: 1. Interval development of a moderate multiloculated right pleural effusion with mild associated basi lar atelectasis. Interval development of a small left pleural effusion. 2. Coronary artery disease, pacemaker, cardiomegaly. 3. Remote cholecystectomy. 4. Interval development of mild abdominal ascites. 5. Extensive atherosclerotic calcifications. Reviewed by: Arturo Vaughn MD on 09/25/2021 3:10 PM PDT Approved by: Arturo Vaughn MD on 09/25/2021 3:10 PM PDT Station ID: [id number]
--- NOTE | 2021-09-25 15:30 | ED Physician Documentation ---
PD HPI ABD PAIN - Stated complaint Stated Complaint: ABD PX - Chief complaint Chief Complaint: Abd Pain - History obtained from History obtained from: Patient, Family () - Additional information Additional information: 77-year-old gentleman referred in by his [employer] architect for abdominal distention. Says its been going on for about 4 months, but worse over the last couple of weeks. Its uncomfortable and his pants are tight and he feels early satiety from it. He has a history of form of atrial fibrillation and pacemaker. He was converted out of atrial fibrillation 7 days ago. He also has a history of heart failure. Currently his only diuretic is Aldactone 12.5 mg a day. He is also therapeutically anticoagulated with Pradaxa. Review of Systems Ten Systems: 10 systems reviewed and negative Constitutional: denies: Fever, Chills Cardiac: denies: Chest pain / pressure, Palpitations Respiratory: reports: Dyspnea. denies: Cough GI: reports: Abdominal Pain, Abdominal Swelling. denies: Nausea, Vomiting, Constipation, Diarrhea PD PAST MEDICAL HISTORY - Past Medical History Cardiovascular: Hypertension, Coronary artery disease, Other Respiratory: None Neuro: None Endocrine/Autoimmune: Type 2 diabetes GI: Colon polyps : Retention HEENT: None Psych: None Musculoskeletal: None Derm: None - Past Surgical History Past Surgical History: Yes General: Cholecystectomy Ortho: Hip replacement Cardiovascular: Coronary stent, Pacemaker, Other - Present Medications Home Medications: Ambulatory Orders Medication Instructions Recorded Confirmed Amlodipine Besylate 10 mg PO DAILY 11/19/12 01/24/20 Aspirin [Aspir 81] 81 mg PO BID 11/19/12 01/23/20 Atorvastatin Calcium [Lipitor] 80 mg PO QPM 11/19/12 01/24/20 Metformin HCl [Glumetza] 1,000 mg PO BID 11/19/12 01/24/20 Metoprolol Succinate [Toprol Xl] 25 mg PO BID 02/26/13 01/24/20 Clopidogrel [Plavix] 75 mg PO DAILY 02/26/18 01/23/20 Acetaminophen/Diphenhydramine 1 tab PO QPM PRN 06/26/18 01/24/20 [Tylenol Pm Ex-Strength Caplet] Magnesium Oxide [Magnesium] 400 mg PO DAILY 06/26/18 01/24/20 Cyanocobalamin (Vitamin B-12) 1,000 mcg PO DAILY 01/23/20 01/24/20 [Vitamin B-12] Ferrous Sulfate 325 mg PO DAILY 01/23/20 01/24/20 Torsemide 20 mg PO DAILY #30 tablet 09/25/21 - Allergies Allergies/Adverse Reactions: Allergies Allergy/AdvReac Type Severity Reaction Status Date / Time lisinopril Allergy Severe ANGIOEDEMA Verified 09/25/21 14:04 oxycodone HCl * AdvReac Severe psychosis Verified 09/25/21 14:04 [From OxyContin] - Social History Does the pt smoke?: No Smoking Status: Never smoker Does the pt drink ETOH?: Yes Does the pt have substance abuse?: No - Immunizations Immunizations are current?: No Immunizations: TDAP >10years/unknown - POLST Patient has POLST: No PD ED PE NORMAL - Vitals Vital signs reviewed: Yes - General General: Alert and oriented X 3, No acute distress - HEENT HEENT: PERRL, EOMI - Neck Neck: Supple, no meningeal sign, No bony TTP - Cardiac Cardiac: RRR, No murmur - Respiratory Respiratory: Other (Diminished right base, nonlabored) - Abdomen Abdomen: Other (Slightly distended abdomen but with nontender) - Back Back: No CVA TTP, No spinal TTP - Derm Derm: Normal color, Warm and dry - Extremities Extremities: Other (Minimal peripheral edema) - Neuro Neuro: Alert and oriented X 3, Normal speech Results - Vitals Vitals: Vital Signs - 24 hr 09/25/21 09/25/21 14:00 15:32 Temperature 36.0 C L Heart Rate 75 70 Respiratory 20 26 H Rate Blood Pressure 114/58 L 107/83 H O2 Saturation 97 98 Oxygen O2 Source Room air - EKG (time done) 1522 Rhythm: Paced (a sensed-v paced) - Labs Labs: Laboratory Tests 09/25/21 09/25/21 09/25/21 14:41 14:41 14:41 WBC 7.4 RBC 3.65 L Hgb 11.3 L Hct 35.6 L MCV 97.5 H MCH 31.0 MCHC 31.7 L RDW 13.9 Plt Count 258 MPV 10.3 Neut # (Auto) 5.2 Lymph # (Auto) 1.4 L [place] # (Auto) 0.5 Eos # (Auto) 0.3 Baso # (Auto) 0.0 Absolute Nucleated RBC 0.00 Nucleated RBC % 0.0 Sodium 137 Potassium 5.1 H Chloride 101 Carbon Dioxide 24 Anion Gap 12.0 BUN 25 H Creatinine 1.1 Estimated GFR (MDRD) 65 L Glucose 133 H Calcium 9.8 Total Bilirubin 0.7 AST 23 ALT 25 Alkaline Phosphatase 99 B-Natriuretic Peptide 1040 H Total Protein 7.9 Albumin 4.0 Globulin 3.9 Albumin/Globulin Ratio 1.0 Lipase 35 - Rads (name of study) Loculated right pleural effusion and small left pleural effusion, mild abdominal ascites, coronary disease, cholecystectomy, atherosclerosisCt KUB Radiology: EMP read contemporaneously PD MEDICAL DECISION MAKING - ED course ED course: 76-year-old gentleman presents with abdominal distention. He is found to have ascites and moderate right and small left pleural effusions. He has no biochemical or CT imaging of liver disease so presume given his history that this is related to congestive heart failure. This is corroborated by his BNP being over thousand. He was sent here by his [employer] erp architect and I spoke with him after the completion of his diagnostics, Dr. Stearns. He recommends 40 mg of IV Lasix here, and home-going 20 mg of torsemide a day in addition to the Aldactone that he is already taking at the current dose. Departure - Departure Disposition: 01 Home, Self Care Clinical Impression: Congestive heart failure Qualifiers: Heart failure type: unspecified Heart failure chronicity: acute on chronic Qualified Code(s): I50.9 - Heart failure, unspecified Ascites Qualifiers: Ascites type: other type Qualified Code(s): R18.8 - Other ascites Condition: Good Record reviewed to determine appropriate education?: Yes Instructions: ED CHF General Prescriptions: Torsemide 20 mg PO DAILY #30 tablet Comments: As discussed, seems today that based on the testing that the fluid in your abdomen is probably related to congestive heart failure. I spoke with your [employer] er[employer] architect who wants us to start you on torsemide, a diuretic at 20 mg a day. This is in addition to an IV dose of furosemide, 40 mg that she received here. We anticipate this will start decreasing the amount of fluid in your chest and in your abdomen. You should follow-up with him next week. Continue your other medications, note made that when he saw you today he was planning to increase the spironolactone, but after our discussion today he would like to keep it at 12.5 mg a day. I sent the prescription to [facility] in [place].
[2021-09-25 15:32] VITALS: BP 107/83
[2021-09-25] MEDS ORDERED: FUROSEMIDE 40 MG/4 ML VIAL IVP STA (15:37)
== END 2021-09-25 16:19 | disposition home or self-care (01) ==
LOC: ED 13:49
DX: I11.0 Hypertensive heart disease with heart failure (principal); I50.9 Heart failure, unspecified; R18.8 Other ascites; E11.9 Type 2 diabetes mellitus without complications; Z79.84 Long term (current) use of oral hypoglycemic drugs; Z95.0 Presence of cardiac pacemaker; I48.91 Unspecified atrial fibrillation
CPT/HCPCS: 36415; 80053; 83690; 83880; 85025; 93005; 96374; 99283

== ENCOUNTER 2021-10-06 08:54 | Outpatient (CLI) | payer MEDICARE ==
[2021-10-06 09:04] LABS: BASOPHILS # (AUTO) 0.1 10^3/uL (0.0-0.1); BASOPHILS % (AUTO) 0.6 %; EOSINOPHILS # (AUTO) 0.3 10^3/uL (0.0-0.7); EOSINOPHILS % (AUTO) 4.1 %; HCT - HEMATOCRIT 33.4 % (42.0-52.0); HGB - HEMOGLOBIN 10.9 g/dL (14.0-18.0); LYMPHOCYTES # (AUTO) 1.8 10^3/uL (1.5-3.5); LYMPHOCYTES % (AUTO) 23.7 %; MEAN CORPUSCULAR HEMOGLOBIN 30.8 pg (27.0-31.0); MEAN CORPUSCULAR HGB CONC 32.6 g/dL (32.0-36.0); MEAN CORPUSCULAR VOLUME 94.4 fL (80.0-94.0); MONOCYTES # (AUTO) 0.6 10^3/uL (0.0-1.0); MONOCYTES % (AUTO) 7.4 %; NEUTROPHILS # (AUTO) 4.9 10^3/uL (1.5-6.6); NEUTROPHILS % (AUTO) 63.8 %; PLT - PLATELET COUNT 276 10^3/uL (130-450); RED BLOOD COUNT 3.54 10^6/uL (4.70-6.10); RED CELL DISTRIBUTION WIDTH 13.9 % (12.0-15.0); WHITE BLOOD COUNT 7.7 x10^3/uL (4.8-10.8)
[2021-10-06 09:23] LABS: ALBUMIN 4.2 g/dL (3.2-5.5); ALBUMIN/GLOBULIN RATIO 1.2 (1.0-2.2); BILIRUBIN,TOTAL 0.6 mg/dL (0.2-1.0); CALCIUM 9.5 mg/dL (8.5-10.3); CREATININE 1.3 mg/dL (0.6-1.2); POTASSIUM 4.5 mmol/L (3.5-5.0); TOTAL PROTEIN 7.7 g/dL (6.7-8.2)
[2021-10-06] MEDS ORDERED: ALBUTEROL 1 PUFF INH STA (10:59)
== END 2021-10-06 08:55 | disposition home or self-care (01) ==
LOC: RT 08:54
PROVIDERS: ATTEND Internal Medicine Cardiovascular Disease
DX: I48.19 Other persistent atrial fibrillation (principal); Z79.899 Other long term (current) drug therapy; I50.22 Chronic systolic (congestive) heart failure; I25.810 Atherosclerosis of coronary artery bypass graft(s) without angina pectoris; I25.5 Ischemic cardiomyopathy; Z98.890 Other specified postprocedural states; E78.5 Hyperlipidemia, unspecified; Z95.0 Presence of cardiac pacemaker; I36.1 Nonrheumatic tricuspid (valve) insufficiency; I34.0 Nonrheumatic mitral (valve) insufficiency
CPT/HCPCS: 36415; 80053; 85025; 94060; 94727; 94729

== ENCOUNTER 2021-10-29 08:00 | Outpatient (CLI) | payer MEDICARE ==
--- NOTE | 2021-10-29 15:40 | XRAY Report ---
PROCEDURE: Ankle 3 View RT INDICATIONS: ANKLE FX TECHNIQUE: 3 views of the ankle were acquired. COMPARISON: X-ray, 3 view right ankle, 10/20/2021. FINDINGS: Bones: There is a minimal displaced fracture involving the distal fibula with intra-articular involve ment. The alignment is stable. Ankle mortise is congruent. No suspicious bony lesions. Soft tissues: No tibiotalar joint effusion. Achilles tendon appears normal. Severe atherosclerotic calcifications. IMPRESSION: Minimally displaced oblique intra-articular fracture of the distal fibula. Reviewed by: Samantha Fernandez MD on 10/29/2021 3:38 PM PDT Approved by: Samantha Fernandez MD on 10/29/2021 3:38 PM PDT Station ID: [id number]
--- NOTE | 2021-10-29 16:31 | XRAY Report ---
PROCEDURE: Foot 3 View RT INDICATIONS: FOOT PX TECHNIQUE: 3 views of the foot were acquired. COMPARISON: 3 view of the right ankle, 10/20/2021 and 10/29/2021. FINDINGS: Bones: No fractures or dislocations. No suspicious bony lesions. Mild degenerative joint disease. Soft tissues: No tibiotalar joint effusion. Achilles tendon appears normal. Severe atherosclerotic calcifications. IMPRESSION: 1. No acute osseous abnormalities. 2. Mild degenerative joint disease. 3. Severe atherosclerosis. Reviewed by: Samantha Fernandez MD on 10/29/2021 4:29 PM PDT Approved by: Samantha Fernandez MD on 10/29/2021 4:29 PM PDT Station ID: [id number]
== END 2021-10-29 23:59 | disposition home or self-care (01) ==
LOC: DI.WOS 08:00
PROVIDERS: ATTEND Physician Assistant Surgical
DX: S82.64XA Nondisplaced fracture of lateral malleolus of right fibula, initial encounter for closed fracture (principal); M19.071 Primary osteoarthritis, right ankle and foot; I70.208 Unspecified atherosclerosis of native arteries of extremities, other extremity

== ENCOUNTER 2021-12-18 08:00 | Outpatient (CLI) | payer MEDICARE ==
--- NOTE | 2021-12-18 13:17 | XRAY Report ---
PROCEDURE: Ankle 3 View RT INDICATIONS: ANKLE FX TECHNIQUE: 3 views of the ankle were acquired. COMPARISON: 11/24/2021, 10/29/2021 FINDINGS: Bones: There is interval further healing at oblique fibular shaft fracture site. No new fracture or d islocation. Ankle mortise is normally aligned. No suspicious bony lesions. Soft tissues: No tibiotalar joint effusion. Achilles tendon appears normal. IMPRESSION: Interval further healing at distal fibular shaft fracture site with near-anatomic ankle alignment unchanged from prior study. No new fracture or dislocation. Reviewed by: Viral Olson MD on 12/18/2021 1:16 PM PDT Approved by: Viral Olson MD on 12/18/2021 1:16 PM PDT Station ID: [id number]
== END 2021-12-18 23:59 | disposition home or self-care (01) ==
LOC: DI.WOS 08:00
PROVIDERS: ATTEND Physician Assistant Surgical
DX: S82.831D Other fracture of upper and lower end of right fibula, subsequent encounter for closed fracture with routine healing (principal)

== ENCOUNTER 2022-01-04 12:31 | Outpatient (CLI) | payer MEDICARE ==
--- NOTE | 2022-01-04 14:14 | Ultrasound Report ---
PROCEDURE: Head or Neck Soft Tissue INDICATIONS: ABN THYROID FUNCTION STUDY TECHNIQUE: Real time scanning was performed of the neck region of interest, with image documentation . COMPARISON: None. FINDINGS: No soft tissue neck abnormality seen bilaterally. The right thyroid lobe measures 3.9 x 1. 6 x 1.9 cm. The left thyroid lobe measures 4.1 x 1.3 x 1.3 cm. The isthmus measures 4.3 mm. There are no nodules. Thyroid echotexture is homogenous. IMPRESSION: Normal thyroid ultrasound. Reviewed by: Timi Moreno on 01/04/2022 2:13 PM PDT Approved by: Timi Moreno on 01/04/2022 2:13 PM PDT Station ID: [id number]
== END 2022-01-04 12:32 | disposition home or self-care (01) ==
LOC: DI 12:31
PROVIDERS: ATTEND Physician Assistant
DX: R94.6 Abnormal results of thyroid function studies (principal)

== ENCOUNTER 2022-04-16 08:50 | Outpatient (CLI) | payer MEDICARE ==
[2022-04-16 09:03] LABS: BASOPHILS % (AUTO) 0.4 %; EOSINOPHILS # (AUTO) 0.8 10^3/uL (0.0-0.7); EOSINOPHILS % (AUTO) 11.6 %; HCT - HEMATOCRIT 36.3 % (42.0-52.0); HGB - HEMOGLOBIN 11.4 g/dL (14.0-18.0); LYMPHOCYTES % (AUTO) 44.2 %; MEAN CORPUSCULAR HEMOGLOBIN 31.6 pg (27.0-31.0); MEAN CORPUSCULAR HGB CONC 31.4 g/dL (32.0-36.0); MEAN CORPUSCULAR VOLUME 100.6 fL (80.0-94.0); MEAN PLATELET VOLUME 10.4 fL (7.4-11.4); MONOCYTES # (AUTO) 0.7 10^3/uL (0.0-1.0); NEUTROPHILS # (AUTO) 2.3 10^3/uL (1.5-6.6); NEUTROPHILS % (AUTO) 33.7 %; PLT - PLATELET COUNT 253 10^3/uL (130-450); RED BLOOD COUNT 3.61 10^6/uL (4.70-6.10); RED CELL DISTRIBUTION WIDTH 13.6 % (12.0-15.0); WHITE BLOOD COUNT 6.8 x10^3/uL (4.8-10.8)
[2022-04-16 09:23] LABS: ALBUMIN 4.4 g/dL (3.2-5.5); ALBUMIN/GLOBULIN RATIO 1.1 (1.0-2.2); ALKALINE PHOSPHATASE 76 IU/L (42-121); ALT ALANINE AMINOTRANSFERASE 40 IU/L (10-60); AST ASPARTATE AMINOTRANSFERASE 38 IU/L (10-42); BILIRUBIN,TOTAL 0.9 mg/dL (0.2-1.0); BUN - BLOOD UREA NITROGEN 18 mg/dL (6-20); CALCIUM 9.4 mg/dL (8.5-10.3); CARBON DIOXIDE - CO2 28 mmol/L (21-32); CHLORIDE 100 mmol/L (101-111); CHOL/HDL RATIO 2.7 (<5.0); CHOLESTEROL 109 mg/dL; GFR - MDRD 73 (>89); GLUCOSE 140 mg/dL (70-100); HDL CHOLESTEROL 40 mg/dL; LDL CHOLESTEROL,CALCULATED 55 mg/dL; LDL/HDL RATIO 1.4 (<3.6); POTASSIUM 4.8 mmol/L (3.5-5.0); SODIUM 137 mmol/L (135-145); TOTAL PROTEIN 8.5 g/dL (6.7-8.2); TRIGLYCERIDES 69 mg/dL; VLDL CHOLESTEROL 14 mg/dL
== END 2022-04-16 08:51 | disposition home or self-care (01) ==
LOC: LAB 08:50
PROVIDERS: ATTEND Internal Medicine Cardiovascular Disease
DX: I25.810 Atherosclerosis of coronary artery bypass graft(s) without angina pectoris (principal); E78.5 Hyperlipidemia, unspecified; R07.9 Chest pain, unspecified
CPT/HCPCS: 36415; 80053; 80061; 83721; 83880; 85025

== ENCOUNTER 2022-04-27 08:29 | Outpatient (CLI) | payer MEDICARE ==
[2022-04-27 08:48] LABS: CALCIUM 9.3 mg/dL (8.5-10.3); POTASSIUM 4.7 mmol/L (3.5-5.0)
== END 2022-04-27 08:30 | disposition home or self-care (01) ==
LOC: LAB 08:29
PROVIDERS: ATTEND Physician Assistant Medical
DX: I48.19 Other persistent atrial fibrillation (principal)
CPT/HCPCS: 36415; 80048

== ENCOUNTER 2022-09-28 08:00 | Outpatient (CLI) | payer MEDICARE ==
[2022-09-28 08:11] LABS: BASOPHILS % (AUTO) 0.4 %; EOSINOPHILS # (AUTO) 0.4 10^3/uL (0.0-0.7); EOSINOPHILS % (AUTO) 5.8 %; HCT - HEMATOCRIT 33.7 % (42.0-52.0); LYMPHOCYTES % (AUTO) 26.7 %; MEAN CORPUSCULAR HEMOGLOBIN 31.5 pg (27.0-31.0); MEAN CORPUSCULAR HGB CONC 32.6 g/dL (32.0-36.0); MEAN CORPUSCULAR VOLUME 96.6 fL (80.0-94.0); MEAN PLATELET VOLUME 9.9 fL (7.4-11.4); MONOCYTES # (AUTO) 0.7 10^3/uL (0.0-1.0); MONOCYTES % (AUTO) 8.7 %; NEUTROPHILS # (AUTO) 4.4 10^3/uL (1.5-6.6); PLT - PLATELET COUNT 253 10^3/uL (130-450); RED BLOOD COUNT 3.49 10^6/uL (4.70-6.10); RED CELL DISTRIBUTION WIDTH 13.2 % (12.0-15.0); WHITE BLOOD COUNT 7.6 x10^3/uL (4.8-10.8)
[2022-09-28 08:45] LABS: THYROID STIMULATING HORMONE 4.56 uIU/mL (0.34-5.60)
[2022-09-28 08:47] LABS: FREE T3 3.03 pg/mL (2.5-3.9); FREE T4 (FREE THYROXINE) 0.8 ng/dL (0.58-1.64)
[2022-09-29 20:08] LABS: THYROGLOBULIN ANTIBODY 5.9 IU/mL (0.0-0.9)
== END 2022-09-28 23:59 | disposition home or self-care (01) ==
LOC: LAB 08:00
PROVIDERS: ATTEND Physician Assistant
DX: D64.9 Anemia, unspecified (principal); R94.6 Abnormal results of thyroid function studies
CPT/HCPCS: 36415; 84439; 84443; 84481; 85025; 86376; 86800

== ENCOUNTER 2022-10-19 08:05 | Outpatient (CLI) | payer MEDICARE ==
[2022-10-19 09:05] LABS: ALBUMIN 3.8 g/dL (3.2-5.5); ALBUMIN/GLOBULIN RATIO 1.1 (1.0-2.2); BILIRUBIN,TOTAL 0.3 mg/dL (0.2-1.0); CALCIUM 9.2 mg/dL (8.5-10.3); POTASSIUM 4.8 mmol/L (3.5-5.0); TOTAL PROTEIN 7.3 g/dL (6.7-8.2)
[2022-10-19 11:34] LABS: ESTIMATED AVERAGE GLUCOSE 166 mg/dL (70-100); HEMOGLOBIN A1c% 7.4 % (4.27-6.07)
== END 2022-10-19 08:06 | disposition home or self-care (01) ==
LOC: LAB 08:05
PROVIDERS: ATTEND Physician Assistant
DX: E11.9 Type 2 diabetes mellitus without complications (principal)
CPT/HCPCS: 36415; 80053; 83036

== ENCOUNTER 2023-01-07 08:33 | Outpatient (CLI) | payer MEDICARE ==
--- NOTE | 2023-01-07 14:51 | CT Report ---
PROCEDURE: ABDOMEN/PELVIS W INDICATIONS: ABD BLOATING, ABD PAIN CONTRAST: 100ml omni 300 TECHNIQUE: After the administration of IV and oral contrast, 5 mm thick sections acquired from the diaphragms to the symphysis. 5 mm thick coronal and sagittal reformats were acquired. For radiation dose reducti on, the following was used: automated exposure control, adjustment of mA and/or kV according to cecilia ent size. COMPARISON: 09/25/2021 FINDINGS: Image quality: There is mild motion artifact Lower chest: Basal scarring/atelectasis is present. Possible tiny hiatal hernia. Partially visualized cardiac electrode leads. Normal heart size. Solid organs: Liver is unremarkable. Cholecystectomy clips. Unchanged prominent biliary system, post cholecystectomy. No pathologic pancreatic ductal dilation. No splenomegaly. No adrenal nodules. No hy dronephrosis. Mild pelviectasis bilaterally. No obstructing calcified stone. Vessels and lymph nodes: The main portal vein appears patent. There is no abdominal aortic aneurysm. Atherosclerotic disease is present. Bowel and peritoneum: No evidence of small bowel obstruction. No drainable abscess or ascites. No dilated appendix. Body wall: Unremarkable Pelvis: Bladder is unremarkable. Prostate is unremarkable not well evaluated on this study. Pelvis is overall obscured by metallic artifact. Small left inguinal hernia. Bones: Left hip arthroplasty. Degenerative changes. No acute or suspicious osseous finding. Partially seen sternotomy wires. IMPRESSION: No acute bowel obstruction, abscess, ascites, or other finding to explain acute abdominal pain. Mild bilateral renal pelviectasis, without obstructing stone identified. Other findings as above. Reviewed by: Klever Merritt MD on 01/07/2023 2:50 PM PDT Approved by: Klever Merritt MD on 01/07/2023 2:50 PM PDT Station ID: [id number]
[2023-01-07] MEDS ORDERED: iohexoL-300 100 ML VIAL IVP ONE (19:10)
[2023-01-07] MEDS ORDERED: BARIUM SULFATE 1,900 ML BOTTLE RC ONE (19:11)
== END 2023-01-07 08:34 | disposition home or self-care (01) ==
LOC: DI 08:33
PROVIDERS: ATTEND Physician Assistant
DX: R14.0 Abdominal distension (gaseous) (principal); R10.30 Lower abdominal pain, unspecified; N13.30 Unspecified hydronephrosis
CPT/HCPCS: 74177; A9270; Q9967

== ENCOUNTER 2023-02-25 07:24 | Day surgery (SDC) | payer MEDICARE ==
[~2023-02-25 07:24] MED LIST changes: -IOVERSOL 320 100 ML VIAL IVP ONE; +PROPOFOL 500 MG/50 ML 500 MG/50 ML VIAL ONE
[2023-02-25] MEDS ORDERED: LACTATED RINGERS 1,000 ML IV ONE ×2 (07:26→09:23)
--- NOTE | 2023-02-25 07:31 | ANESTHESIA ---
Pre-Anesthesia VS, & Labs - Diagnosis change in bowel habits, bloating - Procedure colonoscopy DIAGNOSTIC Height: 5 ft 11 in - NPO >8 hours Last Fluid Intake: am prep - Lab Results Lab results reviewed: Yes Home Medications and Allergies Home Medications: Ambulatory Orders Dabigatran Etexilate Mesylate [Pradaxa] 150 mg PO BID 02/18/23 Gabapentin [Neurontin] 100 mg PO BID 02/18/23 Nitroglycerin [Nitrostat] 0.4 mg SL [id number] PRN 02/18/23 Spironolactone [Aldactone] 12.5 mg PO ONCE 02/18/23 Tamsulosin [Flomax] 0.4 mg PO DAILY 02/18/23 Torsemide 10 mg PO ONCE 02/18/23 Aspirin [Aspir 81] 81 mg PO BID 11/19/12 Atorvastatin Calcium [Lipitor] 40 mg PO QPM 11/19/12 Metformin HCl [Glumetza] 1,000 mg PO BID 11/19/12 Metoprolol Succinate [Toprol Xl] 25 mg PO BID 02/26/13 Acetaminophen/Diphenhydramine [Tylenol Pm Ex-Strength Caplet] 1 tab PO QPM PRN 06/26/18 Magnesium Oxide [Magnesium] 400 mg PO DAILY 06/26/18 Cyanocobalamin (Vitamin B-12) [Vitamin B-12] 1,000 mcg PO DAILY 01/23/20 Dabigatran Etexilate Mesylate [Pradaxa] 150 mg PO BID 02/18/23 Gabapentin [Neurontin] 100 mg PO BID 02/18/23 Nitroglycerin [Nitrostat] 0.4 mg SL [id number] PRN 02/18/23 Spironolactone [Aldactone] 12.5 mg PO ONCE 02/18/23 Tamsulosin [Flomax] 0.4 mg PO DAILY 02/18/23 Torsemide 10 mg PO ONCE 02/18/23 Allergies/Adverse Reactions: Allergies Allergy/AdvReac Type Severity Reaction Status Date / Time lisinopril Allergy Severe ANGIOEDEMA Verified 09/25/21 14:04 oxycodone HCl * AdvReac Severe psychosis Verified 09/25/21 14:04 [From OxyContin] Anes History & Medical History - Anesthetic History Anesthesia Complications: reports: No previous complications Family history of Anesthesia Complications: Denies Family history of Malignant Hyperthermia: Denies - Medical History Cardiovascular: reports: Hypertension, High cholesterol, Coronary artery disease, Atrial fibrillation, Other Pulmonary: reports: None Gastrointestinal: reports: Colon polyps Urinary: reports: Retention, Kidney stones Neuro: reports: None Musculoskeletal: reports: Osteoarthritis, Chronic back pain Endocrine/Autoimmune: reports: Type 2 diabetes Blood Disorders: reports: Anemia Skin: reports: None Smoking Status: Never smoker Psychosocial: reports: No issues indicated History of Cancer?: No - Surgical History General: reports: Cholecystectomy, Colonoscopy Cardiothoracic: reports: CABG, Coronary stent, Pacemaker, Other Orthopedic: reports: Hip replacement, Spine surgery Exam General: Alert, Oriented x3, Cooperative Dental: WNL Mouth Openin Fingerbreadth Neck Mobility: Normal Mallampati classification: II Thyromental Distance: 4-6 cm Respiratory: Lungs clear, Normal breath sounds, No respiratory distress Cardiovascular: Other (100% pacer currently) Abdomen: Normal bowel sounds Neurological: Normal speech Mental/Cognitive Status: Alert/Oriented X3, Normal for patient Cognitive Status: Within normal limits Plan Anesthesia Type: Total IV Consent for Procedure(s) Verified and Reviewed: Yes Code Status: Attempt Resuscitation ASA classification: 3-Severe systemic disease Is this case an emergency?: No
[2023-02-25] MEDS ORDERED: PROPOFOL 500 MG/50 ML 500 MG/50 ML VIAL ONE (08:22)
[2023-02-25] MEDS ORDERED: MIDAZOLAM 2 MG/2 ML VIAL ONE (08:23)
--- NOTE | 2023-02-25 08:30 | HISTORY & PHYSICAL EXAMINATION ---
Chief Complaint - Chief Complaint Chief Complaint: here for colonoscopy History of Present Illness - History Obtained From Records Reviewed: yes History obtained from: pt Exam Limitations: none - History of Present Illness HPI Comment/Other: history colon polyps. due for surveillance. hx chronic anemia. hx looser stool thought to be med related. takes magnesium and metformin. History - Past Medical History Cardiovascular: reports: Hypertension, High cholesterol, Coronary artery disease, Atrial fibrillation, Other Respiratory: reports: None Neuro: reports: None Endocrine/Autoimmune: reports: Type 2 diabetes GI: reports: Colon polyps : reports: Retention, Kidney stones HEENT: reports: Chronic vision loss Psych: reports: None Musculoskeletal: reports: Osteoarthritis, Chronic back pain Derm: reports: None MRSA Hx?: No - Past Surgical History General: reports: Cholecystectomy, Colonoscopy Ortho: reports: Hip replacement, Spine surgery Cardiovascular: reports: CABG, Coronary stent, Pacemaker, Other - POLST Patient has POLST: No Meds/Allgy - Home Medications Home Medications: Ambulatory Orders Medication Instructions Recorded Confirmed Aspirin [Aspir 81] 81 mg PO BID 11/19/12 02/18/23 Atorvastatin Calcium [Lipitor] 40 mg PO QPM 11/19/12 02/18/23 Metformin HCl [Glumetza] 1,000 mg PO BID 11/19/12 02/18/23 Metoprolol Succinate [Toprol Xl] 25 mg PO BID 02/26/13 02/18/23 Acetaminophen/Diphenhydramine 1 tab PO QPM PRN 06/26/18 02/18/23 [Tylenol Pm Ex-Strength Caplet] Magnesium Oxide [Magnesium] 400 mg PO DAILY 06/26/18 02/18/23 Cyanocobalamin (Vitamin B-12) 1,000 mcg PO DAILY 01/23/20 02/18/23 [Vitamin B-12] Dabigatran Etexilate Mesylate 150 mg PO BID 02/18/23 02/18/23 [Pradaxa] Gabapentin [Neurontin] 100 mg PO BID 02/18/23 02/18/23 Nitroglycerin [Nitrostat] 0.4 mg SL [id number] PRN 02/18/23 02/18/23 Spironolactone [Aldactone] 12.5 mg PO ONCE 02/18/23 02/18/23 Tamsulosin [Flomax] 0.4 mg PO DAILY 02/18/23 02/18/23 Torsemide 10 mg PO ONCE 02/18/23 02/18/23 - Allergies Allergies/Adverse Reactions: Allergies Allergy/AdvReac Type Severity Reaction Status Date / Time lisinopril Allergy Severe ANGIOEDEMA Verified 09/25/21 14:04 oxycodone HCl * AdvReac Severe psychosis Verified 09/25/21 14:04 [From OxyContin] Review of Systems - Other Findings Other Findings: 10 pt ros as above otherwise unremarkable. heart function improved since last year. Exam - Vital Signs Vital Signs: Vital Signs x48h Temp Pulse Resp BP Pulse Ox 02/25/23 07:26 36.0 C L 70 17 158/89 H 98 - Physical Exam General Appearance: positive: No acute distress, Alert Eyes Bilateral: positive: PERRL, EOMI ENT: positive: No signs of dehydration Neck: positive: No JVD Respiratory: positive: Breath sounds nml Cardiovascular: positive: Irregularly irregular Abdomen: positive: No distention Neurologic/Psychiatric: positive: Oriented x3 Conclusion/Plan - Problem List (1) History of adenomatous polyp of colon Conclusion/Plan: plan surveillance colonoscopy. parq held and consent obtained - Lab Results Lab results reviewed: Yes
[2023-02-25] MEDS ORDERED: PROPOFOL 200 MG/20 ML VIAL IVP ONE (09:14)
[2023-02-25 09:32] VITALS: O2SAT 100
--- NOTE | 2023-02-25 09:45 | ANESTHESIA POST OP EVALUATION ---
Anesthesia Post Eval - Post Anesthesia Eval Vitals: Last Vital Signs Temp 36.0 C L 02/25/23 09:26 Pulse 71 02/25/23 09:26 Resp 17 02/25/23 09:26 BP 140/74 H 02/25/23 09:26 Pulse Ox 100 02/25/23 09:26 O2 Flow Rate CV Function Including HR & BP: Stable Pain Control: Satisfactory Nausea & Vomiting: Negative Mental Status: Baseline Respiratory Status: Airway Patent Hydration Status: Satisfactory Anesthesia Complications: None
[2023-02-25 09:52] VITALS: BP 131/89
== END 2023-02-25 07:25 | disposition home or self-care (01) ==
LOC: SDS 07:24
PROVIDERS: ATTEND Surgery
PROC: 0DBL8ZZ Excision of Transverse Colon, Via Natural or Artificial Opening Endoscopic (ICD-10-PCS; 2023-02-25)
PROC: 0DBN8ZZ Excision of Sigmoid Colon, Via Natural or Artificial Opening Endoscopic (ICD-10-PCS; 2023-02-25)
PROC: 0DBF8ZX Excision of Right Large Intestine, Via Natural or Artificial Opening Endoscopic, Diagnostic (ICD-10-PCS; 2023-02-25)
PROC: 0DBG8ZX Excision of Left Large Intestine, Via Natural or Artificial Opening Endoscopic, Diagnostic (ICD-10-PCS; 2023-02-25)
PROC: 0DBK8ZZ Excision of Ascending Colon, Via Natural or Artificial Opening Endoscopic (ICD-10-PCS; principal; 2023-02-25 08:30)
DX: Z12.11 Encounter for screening for malignant neoplasm of colon (principal); D12.3 Benign neoplasm of transverse colon; D12.5 Benign neoplasm of sigmoid colon; D12.2 Benign neoplasm of ascending colon; K57.30 Diverticulosis of large intestine without perforation or abscess without bleeding; E11.9 Type 2 diabetes mellitus without complications; I48.91 Unspecified atrial fibrillation; I25.10 Atherosclerotic heart disease of native coronary artery without angina pectoris; I10 Essential (primary) hypertension; Z95.0 Presence of cardiac pacemaker
CPT/HCPCS: 45380; 45385; J7120

== ENCOUNTER 2023-03-29 16:15 | Outpatient (CLI) | payer MEDICARE ==
[2023-03-29 21:07] LABS: BASOPHILS # (AUTO) 0.1 10^3/uL (0.0-0.1); BASOPHILS % (AUTO) 0.4 %; EOSINOPHILS # (AUTO) 0.4 10^3/uL (0.0-0.7); EOSINOPHILS % (AUTO) 3.1 %; HCT - HEMATOCRIT 35.8 % (42.0-52.0); HGB - HEMOGLOBIN 11.4 g/dL (14.0-18.0); LYMPHOCYTES # (AUTO) 1.9 10^3/uL (1.5-3.5); LYMPHOCYTES % (AUTO) 14.6 %; MEAN CORPUSCULAR HEMOGLOBIN 31.3 pg (27.0-31.0); MEAN CORPUSCULAR HGB CONC 31.8 g/dL (32.0-36.0); MEAN CORPUSCULAR VOLUME 98.4 fL (80.0-94.0); MONOCYTES # (AUTO) 0.9 10^3/uL (0.0-1.0); MONOCYTES % (AUTO) 7.1 %; NEUTROPHILS # (AUTO) 9.6 10^3/uL (1.5-6.6); NEUTROPHILS % (AUTO) 74.5 %; PLT - PLATELET COUNT 257 10^3/uL (130-450); RED BLOOD COUNT 3.64 10^6/uL (4.70-6.10); WHITE BLOOD COUNT 12.9 x10^3/uL (4.8-10.8)
[2023-03-29 21:29] LABS: ALBUMIN 4.5 g/dL (3.2-5.5); ALBUMIN/GLOBULIN RATIO 1.3 (1.0-2.2); BILIRUBIN,TOTAL 0.4 mg/dL (0.2-1.0); BILIRUBIN,URINE NEGATIVE (NEGATIVE); GLUCOSE, URINE (UA) 100 mg/dL (NEGATIVE); KETONES,URINE (UA) TRACE mg/dL (NEGATIVE); LEUKOCYTE ESTERASE, URINE NEGATIVE (NEGATIVE); NITRITE,URINE NEGATIVE (NEGATIVE); OCCULT BLOOD,URINE LARGE (NEGATIVE); PH,URINE 5.5 PH (5.0-7.5); POTASSIUM 4.6 mmol/L (3.5-4.5); PROTEIN,URINE 100 mg/dL (NEGATIVE); UROBILINOGEN,URINE 0.2 (NORMAL) E.U./dL (NORMAL)
[2023-03-29 21:31] LABS: BACTERIA,URINE Few /HPF (None Seen); CLARITY,URINE TURBID (CLEAR); RBC,URINE TNTC /HPF (0-5); SQUAMOUS EPITHELIAL CELL,UR NONE SEEN (<= Few)
[2023-03-29 22:01] LABS: ESTIMATED AVERAGE GLUCOSE 177 mg/dL (70-100); HEMOGLOBIN A1c% 7.8 % (4.27-6.07)
== END 2023-03-29 16:30 | disposition home or self-care (01) ==
LOC: LAB.N 16:15
PROVIDERS: ATTEND Family Medicine
DX: E11.9 Type 2 diabetes mellitus without complications (principal); R31.9 Hematuria, unspecified; R53.1 Weakness; D64.9 Anemia, unspecified
CPT/HCPCS: 36415; 80053; 81001; 83036; 85025; 85651; 87077; 87086; 87181

== ENCOUNTER 2023-05-12 07:53 | Outpatient (CLI) | payer MEDICARE ==
[2023-05-12 08:49] LABS: THYROID STIMULATING HORMONE 4.92 uIU/mL (0.34-5.60)
== END 2023-05-12 07:54 | disposition home or self-care (01) ==
LOC: LAB 07:53
PROVIDERS: ATTEND Psychiatry & Neurology Neurology
DX: R20.2 Paresthesia of skin (principal); R41.3 Other amnesia; E55.9 Vitamin D deficiency, unspecified
CPT/HCPCS: 36415; 82306; 82607; 82746; 84439; 84443

== ENCOUNTER 2023-10-04 08:15 | Outpatient (CLI) | payer MEDICARE ==
[2023-10-04 08:51] LABS: BASOPHILS # (AUTO) 0.1 10^3/uL (0.0-0.1); BASOPHILS % (AUTO) 0.7 %; EOSINOPHILS # (AUTO) 0.7 10^3/uL (0.0-0.7); EOSINOPHILS % (AUTO) 8.9 %; HGB - HEMOGLOBIN 10.6 g/dL (14.0-18.0); LYMPHOCYTES # (AUTO) 2.1 10^3/uL (1.5-3.5); LYMPHOCYTES % (AUTO) 27.7 %; MEAN CORPUSCULAR HEMOGLOBIN 31.7 pg (27.0-31.0); MEAN CORPUSCULAR HGB CONC 32.1 g/dL (32.0-36.0); MEAN CORPUSCULAR VOLUME 98.8 fL (80.0-94.0); MEAN PLATELET VOLUME 10.3 fL (7.4-11.4); MONOCYTES # (AUTO) 0.5 10^3/uL (0.0-1.0); MONOCYTES % (AUTO) 6.9 %; NEUTROPHILS # (AUTO) 4.1 10^3/uL (1.5-6.6); NEUTROPHILS % (AUTO) 55.5 %; PLT - PLATELET COUNT 249 10^3/uL (130-450); RED BLOOD COUNT 3.34 10^6/uL (4.70-6.10); RED CELL DISTRIBUTION WIDTH 12.6 % (12.0-15.0); WHITE BLOOD COUNT 7.4 x10^3/uL (4.8-10.8)
[2023-10-04 09:04] LABS: CREATININE,URINE 151.5 mg/dL; MICROALBUM/CREATININE RATIO,UR 6.6 ug/mg (<30.0)
[2023-10-04 09:05] LABS: ALBUMIN 4.1 g/dL (3.2-5.5); ALBUMIN/GLOBULIN RATIO 1.3 (1.0-2.2); ALKALINE PHOSPHATASE 60 IU/L (42-121); ALT ALANINE AMINOTRANSFERASE 20 IU/L (10-60); AST ASPARTATE AMINOTRANSFERASE 21 IU/L (10-42); BILIRUBIN,TOTAL 0.5 mg/dL (0.2-1.0); BUN - BLOOD UREA NITROGEN 15 mg/dL (6-20); CALCIUM 9.5 mg/dL (8.5-10.3); CARBON DIOXIDE - CO2 29 mmol/L (21-32); CHLORIDE 99 mmol/L (101-111); CHOLESTEROL 97 mg/dL; GFR - MDRD 72 (>89); GLUCOSE 135 mg/dL (74-104); HDL CHOLESTEROL 47 mg/dL; POTASSIUM 4.5 mmol/L (3.5-4.5); SODIUM 133 mmol/L (135-145); TOTAL PROTEIN 7.3 g/dL (6.4-8.9); TRIGLYCERIDES 75 mg/dL (48-352); VLDL CHOLESTEROL 15 mg/dL
[2023-10-04 09:06] LABS: CHOL/HDL RATIO 2.1 (<5.0); LDL CHOLESTEROL,CALCULATED 35 mg/dL; LDL/HDL RATIO 0.7 (<3.6)
[2023-10-04 09:20] LABS: THYROID STIMULATING HORMONE 3.24 uIU/mL (0.34-5.60)
[2023-10-04 10:14] LABS: ESTIMATED AVERAGE GLUCOSE 163 mg/dL (70-100); HEMOGLOBIN A1c% 7.3 % (4.27-6.07)
== END 2023-10-04 08:16 | disposition home or self-care (01) ==
LOC: LAB 08:15
PROVIDERS: ATTEND Physician Assistant
DX: I25.10 Atherosclerotic heart disease of native coronary artery without angina pectoris (principal); E78.5 Hyperlipidemia, unspecified; R68.81 Early satiety; E11.9 Type 2 diabetes mellitus without complications; R41.3 Other amnesia
CPT/HCPCS: 36415; 80053; 80061; 82043; 82570; 83036; 83721; 84443; 85025